=== PATIENT | female | born 1950 | race Caucasian/White ===

== ENCOUNTER → 2023-11-18 06:34 | Outpatient (REF) | payer MEDICARE, OTHER, SELFPAY | LOC: MRI 06:34 | PROVIDERS: ATTENDING PHYSICIAN Family Medicine | DX: R29.898 Other symptoms and signs involving the musculoskeletal system (principal) | CPT/HCPCS: 72141 ==

== ENCOUNTER 2023-11-23 08:30 | Inpatient (IN) | payer MEDICARE, OTHER, SELFPAY ==
[2023-11-23] VITALS (8 sets, daily range): BP systolic 134–153; BP diastolic 74–86; BMI 22.6
[2023-11-23 01:38] LABS: % Basophils 0.6 % (0-2); % Eosinophils 0.8 % (0-6); % Immature Granulocytes 0.3 % (0-0.5); % Monocytes 4.7 % (1.7-9.3); % Neutrophils 69.6 % (42.2-75.2); Absolute Basophils 0.1 10^3/uL (0-0.2); Absolute Eosinophils 0.1 10^3/uL (0-0.7); Absolute Lymphocytes 2.8 10^3/uL (1.2-3.4); Absolute Monocytes 0.6 10^3/uL (0.1-0.6); Absolute Neutrophils 8.1 10^3/uL (1.4-6.5); Hematocrit 39.1 % (37.0-47.0); Hemoglobin 14.5 g/dL (12.0-16.0); Mean Corp Hgb Conc. 37.1 g/dL (33.0-37.0); Mean Corpuscular Volume 89.1 fL (81.0-99.0); Mean Platelet Volume 10.8 fL (7.4-10.4); Nucleated Red Blood Cells % 0 %; Platelet Count 357 10^3/uL (130-400); Red Blood Cell Count 4.39 10^6/uL (4.20-5.40); Red Cell Dist. Width 13.2 % (11.5-14.5); White Blood Cell Count 11.7 10^3/uL (4.8-10.8)
[2023-11-23 01:50] LABS: ALT (SGPT) 31 U/L (0-35); AST (SGOT) 28 U/L (14-36); Albumin 4.8 g/dl (3.5-5.0); Alkaline Phosphatase 81 U/L (38-126); Blood Urea Nitrogen 16 mg/dl (7-17); Calcium 10.5 mg/dl (8.4-10.2); Carbon Dioxide 23 mmol/L (22-30); Chloride 106 mmol/L (98-107); Glucose 171 mg/dl (70-99); Lipase 110 U/L (23-300); Potassium 4.1 mmol/L (3.5-5.1); Sodium 138 mmol/L (135-145); Total Bilirubin 0.9 mg/dl (0.2-1.3); Total Protein 7.5 g/dl (6.3-8.2); eGFR > 60.00
--- NOTE | 2023-11-23 03:06 | ED.GENMED ---
History of Present Illness
General
Chief Complaint: Abdominal Pain
Source: patient
Time Seen by Provider: 11/23/23 01:37
Travel History
Have you had any contact with someone who has COVID-19?: No
Do you have any symptoms of coronavirus? Fever > 100 degrees, chills, cough, shortness of breath, sore throat, loss of taste or smell, muscle aches, or headache?: No
History of Present Illness
History of Present Illness:
This patient is a 73-year-old female who says she was feeling her usual self until last evening after she ate dinner, but says that the pain gradually just went away and she felt fine. She felt well throughout the day today, but then at around 6 PM
shortly after having dinner she developed diffuse abdominal discomfort associated with chills, tremors, nausea, and repeated episodes of vomiting of 'mucus'. She denies hematemesis or coffee-ground emesis. Upon arrival here she had multiple
'semiformed' brown bowel movements without black stool or blood. She is urinating as usual. She denies fever but does note chills. She denies chest pain, dyspnea, headache, neck pain. Patient notes that her daughter and granddaughter were ill
with similar symptoms last week. She has a history of bowel obstructions in the past but states that exactly feel like that.
Past History
Past History
ED Past Medical History: Cancer (Appendiceal with pseudomyxoma peritonei), Hypercholesterolemia, Valvular disease (MVP) and Other (Trigeminal neuralgia, B12 deficiency, diverticulitis, small bowel obstruction)
ED Past Surgical History: Appendectomy, Bowel resection, Cholecystectomy, Gynecological (Hysterectomy) and Other
Social History
Tobacco: Non-smoker
Alcohol: None
Drug: None
Personal:
Living: with family
Employment: Retired
Family History
Family History: Other (Grandparent with coronary disease, sister with coronary disease)
Phy Exam
Physical Exam
Physical Exam:
GENERAL: Alert , in no apparent distress
EYE: pupils equal and reactive
NECK: Supple, no significant adenopathy.
ENT: o/p clr, mmm.
CARDIAC: Regular rate and rhythm .
LUNGS: Clear breath sounds bilaterally, no acute respiratory distress, no wheezes/rales/rhonchi
ABDOMEN: Soft, diffuse nonspecific mild tenderness, no r/g, no cvat, slightly hyperactive bowel sounds
NEUROLOGICAL: Alert and oriented, no focal neuro deficits
SKIN: Warm and dry, skin intact.
MUSCULOSKELETAL: No edema, well perfused.
PSYCH: Normal and appropriate interaction.
Course
Orders/Labs/Results
Orders:
Orders
11/23/23 01:15
IV Insert/Care/Rem.- Treatment PRN
11/23/23 01:20
Complete Blood Count/With Diff Urgent
Comprehensive Metabolic Panel Urgent
Lipase Urgent
11/23/23 01:40
COVID-19 Antigen Urgent
Source: Nasal Swab
Influenza A+B Rapid Molecular Urgent
NATALIE Source: Nasal Swab
Specimen Description:
11/23/23 03:04
0.9% Sodium Chloride 1000 ml [Nss] 1,000 ml IV BOLUS
Iohexol [Omnipaque] See Protocol PO NOW STA
Ondansetron Injectable [Zofran] 4 mg IV NOW STA
11/23/23 03:05
CT Abd/pel W Iv And Oral Contr Urgent
Comment:
Reason For Exam: abd pain,n,v
11/23/23 03:12
Add On- LAB Urgent
Tests Added?: lipase
11/23/23 03:38
Complete Blood Count/No Diff Urgent
Glycohemoglobin (HgbA1c) Urgent
11/23/23 04:29
Ondansetron Injectable [Zofran] 4 mg .ROUTE .STK-MED ONE
11/23/23 04:36
Ondansetron Injectable [Zofran] 4 mg IV NOW STA
11/23/23 05:07
Ondansetron Injectable [Zofran] 4 mg IV NOW STA
11/23/23 07:25
0.9% Sodium Chloride 250 ml [Nss] 250 ml IV BOLUS
Prochlorperazine [Compazine] 10 mg IV NOW STA
11/23/23 08:11
HYDROmorphone [Dilaudid] 0.5 mg IV Q3HPRN PRN
11/23/23 08:14
Admit/Transfer Patient As Directed
Co-Sign Provider:
Level of Care: Inpatient admission
Assign to:: Medical/Surgical
Physician / Group: Ivy
Diagnosis: Small bowel obstruction
Reason for Hospitalization: N.p.o., IV fluids, analgesics, surgery consult
Expected length of stay greater than two midnights?: Yes
ELOS- Estimated Length of Stay in days: 3
I certify the patient meets the requirements for IP care: Yes
11/23/23 08:15
Code Status As Directed
Resuscitation Status: Full Code
11/23/23 08:27
Add On- LAB Routine
Tests Added?: HgbA1c
11/23/23 Lunch
NPO
Allow oral meds: No
Allow clear liquids: No
11/23/23 11:20
0.9% Sodium Chloride 1000 ml [Nss] 1,000 ml IV 100 mls/hr
Prochlorperazine [Compazine] 10 mg IV Q6HPRN PRN
11/23/23 11:20
SURGICAL CONSULT Routine
Consulting Provider: David Jimenes
Was physician already notified: Yes
Activity As Directed
Activity Level: Ambulate
I&O [Intake/ Output] As Directed
Frequency: q12h
DX Deep Vein Thrombosis Video Routine
11/23/23 18:00
Enoxaparin Sodium [Lovenox] 40 mg SC QPM
11/24/23 06:29
Complete Blood Count/With Diff IN AM
Comprehensive Metabolic Panel IN AM
Abnormal Lab Results
11/23/23 11/23/23
01:20 03:38
WBC 11.7 H 10^3/uL
(4.8-10.8)
MCH 33.0 H pg 32.0 H pg
(27.0-31.0) (27.0-31.0)
MCHC 37.1 H g/dL
(33.0-37.0)
MPV 10.8 H fL 10.9 H fL
(7.4-10.4) (7.4-10.4)
Absolute Neuts (auto) 8.1 H 10^3/uL
(1.4-6.5)
Glucose 171 H mg/dl
(70-99)
Hemoglobin A1c 5.8 H %
(4.0-5.6)
Calcium 10.5 H mg/dl
(8.4-10.2)
11/23/23 03:38
11/23/23 01:20
Vital Signs
Initial and Last Documented VS:
Initial Vital Signs
Temp Pulse Resp BP Pulse Ox
97.9 F 93 16 139/79 100
11/23/23 01:03 11/23/23 01:03 11/23/23 01:03 11/23/23 01:03 11/23/23 01:03
Last Documented Vital Signs
Temp Pulse Resp BP Pulse Ox
97.6 F 71 20 130/82 99
11/26/23 07:30 11/26/23 07:30 11/26/23 07:30 11/26/23 07:30 11/26/23 09:10
*Critical Care Note
Total Time (30-74mins, 75-104mins- exclusive of procedures): Not Applicable
Update Note
Update Note:
Patient presents to the Emergency Department with abdominal pain, nausea, vomiting
Number and Complexity of Problems Addressed at the Encounter
� Chronic conditions affecting care:
� Acute Exacerbation and/or Progression of Chronic Illness:
� Differential Diagnosis includes: But not limited to viral illness such as norovirus, bowel obstruction, diverticulitis, etc.
Amount and/or Complexity of Data to be Reviewed and Analyzed
� I performed an independent evaluation of and my interpretation is:
EKG:
CT: sbo
Xrays:
Laboratory Studies:no wbc elevation, mild hypoK
Other:
� Review of other/old records reveals: Patient admitted August 2018 for TIA. Extensive surgical history noted in other records
� Clinical information was obtained by an independent historian:
� Prescriptions/Medications Considered but not given:
� Further testing considered but not performed:
Risk of Complications and/or Morbidity or Mortality of Patient Management
� Social determinants of health affecting care:
� Discussion with other providers (PCP, Hospitalists, Consultants, etc):
� Escalation of care including admission/observation vs risk of discharge considered:
ED Attending Note
-
Portions of this chart may have been created with voice recognition software.� Occasional wrong word or��sound alike� substitutions may have occurred due to the inherent limitations of voice recognition software.
Discharge Plan
Departure
Patient Disposition: Admit
Date of Disposition: 11/23/23
Time of Disposition: 07:25
Admit to doctor: gary
Presentation/result/management discussed w/ accepting MD/DO: Hospitalist
Condition: Good
Discharge Problem:
SBO (small bowel obstruction)
Interventions
Interventions:
*General Assessment Last Done: 11/23/23 01:03
*Neglect/Abuse Screening Last Done: 11/23/23 01:03
ED- Fall Risk Assessment Last Done: 11/23/23 03:53
*Nursing Disposition Last Done: 11/23/23 19:16
NP-Ihzylj-Ohgfvswinr Assessment Last Done: 11/23/23 01:47
Discharge Date and Time
Discharge Date/Time: 11/23/23 19:17
[2023-11-23 03:11] LABS: COVID-19 Antigen Negative (Negative)
[2023-11-23] MEDS: ZOFRAN 4 MG IV ×3 (03:30→05:08)
[2023-11-23] MEDS: NSS 1000 IV ×2 (03:45→12:38)
[2023-11-23] MEDS: OMNIPAQUE 50 ML PO (03:45)
[2023-11-23 04:06] LABS: Hematocrit 38.8 % (37.0-47.0); Hemoglobin 13.8 g/dL (12.0-16.0); Mean Corp Hgb Conc. 35.6 g/dL (33.0-37.0); Mean Platelet Volume 10.9 fL (7.4-10.4); Platelet Count 336 10^3/uL (130-400); Red Blood Cell Count 4.31 10^6/uL (4.20-5.40); Red Cell Dist. Width 13.1 % (11.5-14.5); White Blood Cell Count 9.8 10^3/uL (4.8-10.8)
[2023-11-23] MEDS: COMPAZINE 10 MG IV ×2 (07:44→12:40)
[2023-11-23] MEDS: NSS 250 IV (07:45)
--- NOTE | 2023-11-23 08:17 | HPS.HSE ---
Family Physician
-
Family Physician: Cesar De Luna
Chief Complaint
-
Abdominal pain, vomiting
History of Present Illness
73-year-old female with numerous bowel obstructions in the past now presenting with recurrence of vomiting and abdominal pain. Had some abdominal pain Friday night that self resolved. Apparently felt well during the day yesterday but had
recurrence of severe abdominal pain Friday evening after dinner. Associated multiple bouts of vomiting but also had multiple bowel movements. Has had soft and loose stools chronically for some time, using daily Imodium for the past week. Has
had multiple bowel resections due to bowel obstruction and prior intestinal malignancy.
Medical History
Past Medical History
Past Medical History: Reports Other
Additional Past Medical History:
Appendiceal pseudomyxoma peritonei -initially diagnosed 1991. Multiple abdominal surgeries.
Hyperlipidemia
Mitral valve prolapse
Trigeminal neuralgia
B12 deficiency
Multiple small bowel obstructions
Diverticulosis
Past Surgical History: Reports Appendectomy, Cholecystectomy and Gynocological
Additional Past Surgical History:
Bowel resections
Social History
Tobacco: Non-smoker
Alcohol: None
Drug: None
Personal:
Living: With Family
Family History
Family History: Not pertinent
Allergies / Home Medications
Allergies reflects when Allergies were last updated in [employer].
Home Medications with original date entered in [employer]
Allergy/Medication List:
Allergies
Allergy/AdvReac Type Severity Reaction Status Date / Time
azithromycin [From Zithromax] Allergy Unknown Verified 05/29/22 16:38
cefuroxime axetil Allergy Nausea Verified 05/29/22 16:38
[From Ceftin]
cephalexin monohydrate Allergy Swelling Verified 05/29/22 16:38
[From Keflex]
ciprofloxacin [From Cipro] Allergy Swelling Verified 05/29/22 16:38
ciprofloxacin HCl Allergy Swelling Verified 05/29/22 16:38
[From Cipro]
duloxetine [From Cymbalta] Allergy Unknown Verified 05/29/22 16:38
gabapentin Allergy Rash Verified 05/29/22 16:38
nitrofurantoin Allergy Rash Verified 05/29/22 16:38
[From Macrobid]
sulfamethoxazole Allergy Nausea Verified 05/29/22 16:38
[From Bactrim]
trimethoprim [From Bactrim] Allergy Nausea Verified 05/29/22 16:38
fluorquinolones Allergy > 2 months Uncoded 02/02/22 13:16
of tooth
pain
Home Medications
cholecalciferol (vitamin D3) 25 mcg (1,000 unit) tablet 1,000 units PO DAILY 08/27/18
cyanocobalamin (vitamin B-12) 1,000 mcg tablet 1,000 mcg PO DAILY 08/27/18
guar gum 1 pkt PO DAILY 08/27/18
magnesium 200 mg tablet (magnesium gluconate) 200 mg PO DAILY 08/27/18
polyethylene glycol 3350 17 gram oral powder packet 17 grams PO DAILYPRN PRN constipation 08/27/18
aspirin 81 mg tablet,delayed release 81 mg PO DAILY 08/28/18
atorvastatin 40 mg tablet 40 mg PO QPM ##60 08/28/18
Review of Systems
-
History Source: Patient
A 12 point ROS was completed and negative except as noted: Yes
Abdomen/GI: Reports Abdominal Pain, Vomiting and Diarrhea
Physical Exam
Vital Signs
Vital Signs
Temp Pulse Resp BP Pulse Ox
97.9 F 85 16 153/86 98
11/23/23 01:03 11/23/23 05:35 11/23/23 05:35 11/23/23 06:00 11/23/23 05:35
Physical Exam
General: Well Developed, Well Nourished, Appears in Distress and Pain
HEENT: NormoCephalic, Anicteric and Moist mucous membranes
Respiratory: Clear
Cardiac: S1/S2 and Regular Rhythm
Breast: Deferred by me
GI: Soft, Non Distended and Tender (Mild tenderness without guarding)
Genito-urinary: Deferred by me
Musculoskeletal: No Clubbing, No Cyanosis and No Edema
Skin: Warm and Dry
Neuro: AO x 3
Hematologic/Lymphatic: No Lymphadenopathy
Psych: Calm
Laboratory Results
-
11/23/23 03:38
11/23/23 01:20
Laboratory Results
Total Bilirubin 0.9 mg/dl (0.2-1.3) 11/23/23 01:20
AST 28 U/L (14-36) 11/23/23 01:20
ALT 31 U/L (0-35) 11/23/23 01:20
Alkaline Phosphatase 81 U/L (38-126) 11/23/23 01:20
Lipase Cancelled 11/23/23 03:04
Impression/Plan
-
Abdominal pain/intractable vomiting -differential diagnosis includes acute gastroenteritis versus partial small bowel obstruction versus ileus. [facility] general surgery, n.p.o., IV fluids, antiemetics, analgesics. Await CT abdomen
pelvis reading by radiologist. Clinically not examining with bowel obstruction as she is not distended.
Check stool studies.
Hyperglycemia -rule out DM2. Check hemoglobin A1c.
Hypercalcemia -suspect due to volume depletion. Repeat labs after hydration.
Hyperlipidemia
Full code
[2023-11-23 09:51] LABS: Glycohemoglobin (HgbA1c) 5.8 % (4.0-5.6)
--- NOTE | 2023-11-23 11:43 | CON.GS ---
Addendum entered and electronically signed by David Jimenes MD 11/23/23 12:19:
Patient seen and examined. Agree with assessment and plan as documented below.
Patient is a 73 yo F with a PMH of spinal stenosis and appendiceal ca c/b pseudomyxoma peritonei s/p exploratory laparotomy, partial colectomy, cholecystectomy, total hysterectomy, splenectomy, omentectomy, and HIPEC [place] [address] Butt. She
states that she has not had a SBO since 2007. Over the last several months she has had issues with diarrhea and has been undergoing workup by her PCP. She does not follow with a GI or Oncologist. She presents with an acute worsening of symptoms
over the past 24-48 hours. Symptoms became acutely worse after eating a large volume of 'cauliflower steaks', as well as taking Imodium. Most recent bowel movement and flatus was yesterday. No fevers. Associated nausea and vomiting. Reports
current nausea, but no vomiting.
Gen: NAD
Abd: soft, NT/ND, no tympany, non-peritoneal
Labs and imaging were reviewed.
Patient is a 73 yo F p/w SBO likely secondary to adhesions, dietary indiscretion, and medication induced.
Clinically stable with a benign abdomen. No radiographic signs concerning for bowel ischemia or perforation. Appears to have equalization with a large food bolus within the jejunum resulting in dilation of the more proximal jejunum, duodenum, and
stomach. Given her symptomatic nature and proximal location of pathology, recommended NGT decompression. Patient refuses, risks discussed. Increased risk for operative complications given her prior surgical history (patient was told to let any
future surgeons know that there is extensive scarring). Recommend trial of medical management. All questions answered.
-- NPO, IVF, patient refuses NGT
-- Minimize narcotics, correct lytes
-- OOB/ambulate
-- Dietary education provided
Original Note:
Medical History
-
Chief Complaint: nausea
History of Present Illness:
This is a 73 yo female with a h/o spinal stenosis, appendiceal pseudomyxoma peritonei s/p resection in the 1991 with recurrent SBOs and recurrence requiring surgery in 2008 in [facility] with a 17 hour procedure that included
cholecystectomy,splenectomy and hysterectomy with subsequent medical treatment. She has noted no sbo's requiring hospitalization since procedure in 2008 but has been following with GI for recurrent diarrhea over the past few months with work up thus
far negative. She reports a normal colonoscopy one month ago. She was instructed to take Imodium as needed which she did about 48 hours ago. Over the past few days to weeks, she has had some general abdominal symptoms which have resolved relatively
quickly but notes that yesterday evening after dinner of cauliflower steak she noted pain increasing to her abdomen with development of nausea and vomiting. She is currently still nauseated but abdominal pain is mostly resolved. She is passing
flatus but has not passed a stool since yesterday.
Past Medical History
Past Medical History: Cancer (appendiceal pseudomyxoma peritonei), Diverticulitis, Hypercholesterolemia, Valvular Disease (MV prolapse) and Other (b12 deficiency, trigeminal neuralgia)
Past Surgical History: Bowel Resection (surgery in 1991 and 2007 including sbr,partial colectomy, splenectomy), Cholecystectomy and Gynecological (total hysterectomy)
Social History
Tobacco: Non-Smoker
Alcohol: None
Family History
Family History: Reviewed & Not Pertinent
Allergies / Home Medications
Allergy/AdvReac Type Severity Reaction Status Date / Time
azithromycin [From Zithromax] Allergy Unknown Verified 05/29/22 16:38
cefuroxime axetil Allergy Nausea Verified 05/29/22 16:38
[From Ceftin]
cephalexin monohydrate Allergy Swelling Verified 05/29/22 16:38
[From Keflex]
ciprofloxacin [From Cipro] Allergy Swelling Verified 05/29/22 16:38
ciprofloxacin HCl Allergy Swelling Verified 05/29/22 16:38
[From Cipro]
duloxetine [From Cymbalta] Allergy Unknown Verified 05/29/22 16:38
gabapentin Allergy Rash Verified 05/29/22 16:38
nitrofurantoin Allergy Rash Verified 05/29/22 16:38
[From Macrobid]
sulfamethoxazole Allergy Nausea Verified 05/29/22 16:38
[From Bactrim]
trimethoprim [From Bactrim] Allergy Nausea Verified 05/29/22 16:38
fluorquinolones Allergy > 2 months Uncoded 02/02/22 13:16
of tooth
pain
Medication Instructions Recorded Confirmed Type
cholecalciferol (vitamin D3) 25 1,000 units PO DAILY 08/27/18 08/27/18 History
mcg (1,000 unit) tablet
cyanocobalamin (vitamin B-12) 1,000 mcg PO DAILY 08/27/18 08/27/18 History
1,000 mcg tablet
guar gum 1 pkt PO DAILY 08/27/18 08/27/18 History
magnesium 200 mg tablet (magnesium 200 mg PO DAILY 08/27/18 08/27/18 History
gluconate)
polyethylene glycol 3350 17 gram 17 grams PO DAILYPRN PRN 08/27/18 08/27/18 History
oral powder packet constipation
aspirin 81 mg tablet,delayed 81 mg PO DAILY 08/28/18 Rx
release
atorvastatin 40 mg tablet 40 mg PO QPM ##60 08/28/18 Rx
clindamycin HCl 150 mg capsule 450 mg PO Q8H 10 days 02/02/22 Rx
Review of Systems
-
History Source: Patient
All other systems: Negative unless noted
A 10 point review of systems was completed, and was negative except as per HPI.
Physical Exam
Vital Signs
Temp Pulse Resp BP Pulse Ox
97.9 F 85 16 153/86 98
11/23/23 01:03 11/23/23 05:35 11/23/23 05:35 11/23/23 06:00 11/23/23 05:35
11/22/23 11/23/23 11/24/23
05:59 06:59 06:59
Actual Weight
Lab Results
11/23/23 03:38
11/23/23 01:20
WBC 9.8 10^3/uL (4.8-10.8) 11/23/23 03:38
Hgb 13.8 g/dL (12.0-16.0) 11/23/23 03:38
Hct 38.8 % (37.0-47.0) 11/23/23 03:38
Plt Count 336 10^3/uL (130-400) 11/23/23 03:38
Abs Immat Gran (auto) 0.0 10^3/uL (0-0.05) 11/23/23 01:20
Neutrophils % 69.6 % (42.2-75.2) 11/23/23 01:20
Physical Exam
General: Well Developed
HEENT: Moist Mucous Membranes
Respiratory: Non Labored Respirations
GI: Soft, Non Tender and Distended (mild)
Skin: Warm and Dry
Neuro: Awake, Alert and AO x 3
Psych: Calm
Data Reviewed
-
CT Scan: Image Personally Visualized and interpreted, Report Reviewed by me, Discussed with Physician and Discussed with Patient
Labs: Labs Reviewed by me, Discussed with Physician and Discussed with Patient
Old Records: Reviewed
Assessment / Plan
-
73 yo female with a h/o spinal stenosis, appendiceal pseudomyxoma peritonei s/p resection in the 1991 with recurrent SBOs and ca recurrence requiring surgery in 2007 in [facility] with a 17 hour procedure that included cholecystectomy,
splenectomy and hysterectomy with subsequent medical treatment. She has been taking Imodium intermittently over the past few months for chronic diarrhea as directed by her GI, with last dose on Friday. Last BM was Friday. She developed increasing
abdominal discomfort with nausea and vomiting yesterday evening after eating a larger amount of cauliflower. CT imaging consistent with at least a partial SBO although limited d/t lack of oral contrast. No pneumoperitoneum or evidence of bowel
compromise noted. Pain improving. Passing flatus. Nausea still present. AFVSS. No leukocytosis.
Discussed NGT placement with patient given active nausea, she is declining this at this time
NPO/IVF
Will follow nonoperatively for improvement at this time with bowel rest and supportive measures
[2023-11-23] MEDS: DILAUDID 0.5 MG IV (12:37)
[2023-11-23] MEDS: LOVENOX 40 MG SC (20:08)
--- NOTE | 2023-11-23 20:15 | PTCARENOTE ---
Pt arrived to room 434-01. Pt ambulated from stretcher to bed. Pt AAOx3, VSS. Pt c/o 2/10 abdominal pain, reports no other pain. Pt in no signs of acute distress, respirations regular. Pt oriented to room, call herman placed within reach.
[2023-11-24] MEDS: NSS 1000 IV ×3 (00:44→21:44)
[2023-11-24 08:10] LABS: % Basophils 0.3 % (0-2); % Eosinophils 0.1 % (0-6); % Immature Granulocytes 0.3 % (0-0.5); % Lymphocytes 35.5 % (20.5-51.1); % Monocytes 8.4 % (1.7-9.3); % Neutrophils 55.4 % (42.2-75.2); Absolute Lymphocytes 3.5 10^3/uL (1.2-3.4); Absolute Monocytes 0.8 10^3/uL (0.1-0.6); Absolute Neutrophils 5.5 10^3/uL (1.4-6.5); Hematocrit 33.6 % (37.0-47.0); Hemoglobin 12.1 g/dL (12.0-16.0); Mean Corpuscular Hgb 32.7 pg (27.0-31.0); Mean Corpuscular Volume 90.8 fL (81.0-99.0); Mean Platelet Volume 11.7 fL (7.4-10.4); Nucleated Red Blood Cells % 0 %; Platelet Count 267 10^3/uL (130-400); Red Cell Dist. Width 13.4 % (11.5-14.5); White Blood Cell Count 9.9 10^3/uL (4.8-10.8)
[2023-11-24 08:11] VITALS: BP 129/77
[2023-11-24 09:00] LABS: ALT (SGPT) 24 U/L (0-35); AST (SGOT) 23 U/L (14-36); Albumin 3.4 g/dl (3.5-5.0); Alkaline Phosphatase 57 U/L (38-126); Blood Urea Nitrogen 16 mg/dl (7-17); Calcium 8.7 mg/dl (8.4-10.2); Carbon Dioxide 22 mmol/L (22-30); Chloride 106 mmol/L (98-107); Estimated Creatinine Clearance 62 ml/min; Glucose 93 mg/dl (70-99); Potassium 3.6 mmol/L (3.5-5.1); Sodium 136 mmol/L (135-145); Total Bilirubin 1.2 mg/dl (0.2-1.3); Total Protein 5.6 g/dl (6.3-8.2); eGFR > 60.00
--- NOTE | 2023-11-24 10:25 | W.PN.GS2 ---
Today's Communication / Plan
-
NPO/IVF
Assessment / Plan
-
Patient is a 73 yo F with h/o appendiceal ca with initial surgery in 1991, c/b pseudomyxoma peritonei s/p exploratory laparotomy, partial colectomy, cholecystectomy, total hysterectomy, splenectomy, omentectomy, and HIPEC [place] [address] Butt
who p/w SBO likely secondary to adhesions, dietary indiscretion, and medication induced.
Clinically stable with a benign abdomen.� Symptoms improving overall. Still w/o flatus/stool passage
AFVSS
Labs stable without leukocytosis
-- NPO, IVF
-- Minimize narcotics, correct lytes
-- OOB/ambulate
-- Dietary education provided
Subjective Data
-
Date of Service: November 24, 2023
Patient seen and examined at bedside with Dr. Maurice. Denies n/v. No passage of flatus overnight. Overall, pain much improved as is distention.
Objective Data
-
Intake and Output
11/23/23 11/24/23 11/25/23
06:59 06:59 06:59
Intake Total 1000 / 1000
Balance 1000 / 1000
Intake:
IV fluids (Total) 1000 / 1000
Other:
Number of approximated MODERATE 2
amounts of urine
Vital Signs
Temp Pulse Resp BP Pulse Ox
99.1 F 82 18 129/77 98
11/24/23 08:11 11/24/23 08:11 11/24/23 08:11 11/24/23 08:11 11/24/23 08:11
Lab Results
11/24/23 06:29
11/24/23 06:29
Calcium 8.7 mg/dl (8.4-10.2) D 11/24/23 06:29
Total Bilirubin 1.2 mg/dl (0.2-1.3) 11/24/23 06:29
AST 23 U/L (14-36) 11/24/23 06:29
ALT 24 U/L (0-35) 11/24/23 06:29
Alkaline Phosphatase 57 U/L (38-126) 11/24/23 06:29
Total Protein 5.6 g/dl (6.3-8.2) L D 11/24/23 06:29
Albumin 3.4 g/dl (3.5-5.0) L 11/24/23 06:29
Physical Exam
-
NAD, Ox3
ABD soft, mild distention, NT
--- NOTE | 2023-11-24 13:30 | W.PN.HOSP.TC ---
Today's Communication/Plan
-
Monitor vital signs
see plan
N.p.o., fluids
Surgery following
Assessment / Plan
Assessment / Plan
General: Well Developed, Well Nourished, Appears in Distress and Pain
HEENT: NormoCephalic, Anicteric and Moist mucous membranes
Respiratory: Clear
Cardiac: S1/S2 and Regular Rhythm
Breast: Deferred by me
GI: Soft, Non Distended and non tender
Genito-urinary: Deferred by me
Neuro: AO x 3
Psych: Calm
Abdominal pain/intractable vomiting Secondary to small bowel obstruction
History of obstruction in the past
Surgery following
Patient refused NG tube
Fluids
N.p.o.
hx of pseudomyxoma peritonei s/p exploratory laparotomy, partial colectomy, cholecystectomy, total hysterectomy, splenectomy, omentectomy
Hyperglycemia - Check hemoglobin A1c 5.8; consistent with prediabetes
Hypercalcemia -resolved
Hyperlipidemia
Full code
Anticipated Discharge: 24 - 48 hours
Subjective/Interval History
-
Date of Service: November 24, 2023
denies pain
Objective Data
-
Labs:
Laboratory Results
11/24/23
06:29
WBC 9.9
Hgb 12.1
Hct 33.6 L
Plt Count 267 D
Sodium 136
Potassium 3.6
Chloride 106
Carbon Dioxide 22
BUN 16
Creatinine 0.7
Glucose 93
Calcium 8.7 D
Total Bilirubin 1.2
AST 23
ALT 24
Alkaline Phosphatase 57
Vital Signs:
Vital Signs
Temp Pulse Resp BP Pulse Ox
99.1 F 82 18 129/77 98
11/24/23 08:11 11/24/23 08:11 11/24/23 08:11 11/24/23 08:11 11/24/23 08:11
I&O
11/23/23 11/24/23 11/25/23
06:59 06:59 06:59
Intake Total 1000 / 1000
Balance 1000 / 1000
[2023-11-24 14:19] VITALS: BMI 22.6
[2023-11-24 16:00] VITALS: BP 130/84
--- NOTE | 2023-11-24 16:35 | CM ---
camp manager reviewed patient's chart and met with patient and patient lives alone in a 2 story home, patient is independent with adl's and ambulation, no dme, patient drives. patient has a prescription plan and uses [facility].
PCP: Dr. De Luna
Plan; Home no needs when stable.
[2023-11-24] MEDS: LOVENOX SC (17:19)
[2023-11-24] MEDS: MORPHINE SULFATE 1 MG IV (18:21)
[2023-11-24] MEDS: DILAUDID 0.5 MG IV (21:49)
[2023-11-24 23:10] VITALS: BP 113/69
[2023-11-25] MEDS: DILAUDID 0.5 MG IV ×2 (02:00→09:59)
[2023-11-25] MEDS: NSS 1000 IV ×3 (07:21→21:42)
[2023-11-25 07:52] VITALS: BP 135/75
[2023-11-25 08:26] LABS: % Basophils 1.2 % (0-2); % Immature Granulocytes 0.2 % (0-0.5); % Lymphocytes 44.9 % (20.5-51.1); % Monocytes 9.6 % (1.7-9.3); % Neutrophils 43.1 % (42.2-75.2); Absolute Basophils 0.1 10^3/uL (0-0.2); Absolute Eosinophils 0.1 10^3/uL (0-0.7); Absolute Lymphocytes 3.6 10^3/uL (1.2-3.4); Absolute Monocytes 0.8 10^3/uL (0.1-0.6); Absolute Neutrophils 3.5 10^3/uL (1.4-6.5); Hematocrit 34.4 % (37.0-47.0); Hemoglobin 12.1 g/dL (12.0-16.0); Mean Corp Hgb Conc. 35.2 g/dL (33.0-37.0); Mean Corpuscular Hgb 32.5 pg (27.0-31.0); Mean Corpuscular Volume 92.5 fL (81.0-99.0); Mean Platelet Volume 11.9 fL (7.4-10.4); Nucleated Red Blood Cells % 0 %; Platelet Count 281 10^3/uL (130-400); Red Blood Cell Count 3.72 10^6/uL (4.20-5.40); Red Cell Dist. Width 13.6 % (11.5-14.5); White Blood Cell Count 8.1 10^3/uL (4.8-10.8)
[2023-11-25 09:05] LABS: ALT (SGPT) 27 U/L (0-35); AST (SGOT) 24 U/L (14-36); Albumin 3.4 g/dl (3.5-5.0); Alkaline Phosphatase 62 U/L (38-126); Blood Urea Nitrogen 14 mg/dl (7-17); Calcium 8.8 mg/dl (8.4-10.2); Carbon Dioxide 25 mmol/L (22-30); Chloride 104 mmol/L (98-107); Estimated Creatinine Clearance 62 ml/min; Glucose 87 mg/dl (70-99); Potassium 3.4 mmol/L (3.5-5.1); Sodium 137 mmol/L (135-145); Total Protein 5.7 g/dl (6.3-8.2); eGFR > 60.00
--- NOTE | 2023-11-25 11:02 | W.PN.GS2 ---
Today's Communication / Plan
-
-- Clears
-- Abd X-ray to help gauge dietary advancement
-- Minimize narcotics (Tylenol and Toradol added)
Assessment / Plan
-
Patient is a 73 yo F with h/o appendiceal ca with initial surgery in 1991, c/b pseudomyxoma peritonei s/p exploratory laparotomy, partial colectomy, cholecystectomy, total hysterectomy, splenectomy, omentectomy, and HIPEC [place] [address] Butt
who p/w SBO likely secondary to adhesions, dietary indiscretion, and medication induced.
Clinically stable with a benign abdomen.� Symptoms improving overall. Passing flatus, no BM
AFVSS
Labs stable without leukocytosis
-- Clears
-- Abd X-ray to help gauge dietary advancement
-- Minimize narcotics (Tylenol and Toradol added), correct lytes
-- OOB/ambulate
-- Dietary education provided
Subjective Data
-
Date of Service: November 25, 2023
No complaints. Feels improved. No nausea or vomiting. No worsening abdominal distention or pain. Passing flatus, no BM.
Objective Data
-
Intake and Output
11/24/23 11/25/23 11/26/23
06:59 06:59 06:59
Intake Total 1000 / 1000
Balance 1000 / 1000
Intake:
IV fluids (Total) 1000 / 1000
Other:
Number of approximated SMALL 4
amounts of urine
Number of approximated MODERATE 2 1
amounts of urine
Vital Signs
Temp Pulse Resp BP Pulse Ox
98.2 F 67 16 135/75 96
11/25/23 07:52 11/25/23 07:52 11/25/23 07:52 11/25/23 07:52 11/25/23 07:52
Lab Results
11/25/23 07:10
03/12/24 07:10
Calcium 8.8 mg/dl (8.4-10.2) 11/25/23 07:10
Total Bilirubin 1.0 mg/dl (0.2-1.3) 11/25/23 07:10
AST 24 U/L (14-36) 11/25/23 07:10
ALT 27 U/L (0-35) 11/25/23 07:10
Alkaline Phosphatase 62 U/L (38-126) 11/25/23 07:10
Total Protein 5.7 g/dl (6.3-8.2) L 11/25/23 07:10
Albumin 3.4 g/dl (3.5-5.0) L 11/25/23 07:10
Physical Exam
-
Gen: NAD
Abd: soft, NT/ND, non-peritoneal, prior incisions well healed
--- NOTE | 2023-11-25 11:56 | W.PN.HOSP.TC ---
Today's Communication/Plan
-
Monitor vital signs see plan
Abdominal x-ray pending
Continue with clears
Repeat potassium
Assessment / Plan
Assessment / Plan
General: Well Developed, Well Nourished, Appears in Distress and Pain
HEENT: NormoCephalic, Anicteric and Moist mucous membranes
Respiratory: Clear
Cardiac: S1/S2 and Regular Rhythm
Breast: Deferred by me
GI: Soft, Non Distended and non tender
Genito-urinary: Deferred by me
Neuro: AO x 3
Psych: Calm
Abdominal pain/intractable vomiting Secondary to small bowel obstruction
History of obstruction in the past
Surgery following
Patient refused NG tube
Fluids
Now started on clears, abdominal x-ray pending
hx of pseudomyxoma peritonei s/p exploratory laparotomy, partial colectomy, cholecystectomy, total hysterectomy, splenectomy, omentectomy
Mild hypokalemia
Replete
Hyperglycemia - Check hemoglobin A1c 5.8; consistent with prediabetes
Hypercalcemia -resolved
Hyperlipidemia
Full code
Anticipated Discharge: Within 24 hours
Subjective/Interval History
-
Date of Service: November 25, 2023
denies abdominal pain
Objective Data
-
Labs:
Laboratory Results
11/25/23
07:10
WBC 8.1
Hgb 12.1
Hct 34.4 L
Plt Count 281
Sodium 137
Potassium 3.4 L
Chloride 104
Carbon Dioxide 25
BUN 14
Creatinine 0.7
Glucose 87
Calcium 8.8
Total Bilirubin 1.0
AST 24
ALT 27
Alkaline Phosphatase 62
Vital Signs:
Vital Signs
Temp Pulse Resp BP Pulse Ox
98.2 F 67 16 135/75 96
11/25/23 07:52 11/25/23 07:52 11/25/23 07:52 11/25/23 07:52 11/25/23 07:52
I&O
11/24/23 11/25/23 11/26/23
06:59 06:59 06:59
Intake Total 1000 / 1000
Balance 1000 / 1000
--- NOTE | 2023-11-25 12:05 | CM ---
Home when stable no needs.
Plan; Home no needs.
[2023-11-25] MEDS: KCL 260 MEQ IV (13:25)
--- NOTE | 2023-11-25 14:14 | PN.CDI ---
CDI
- -
CDI:
Physician Documentation Request
Admit Date: 11/23/23 08:30
Dear Doctor Diego,
Clinical Indicators:
Patient admitted with small bowel obstruction.
11/23 note/assessment: -'23lb 17% weight loss x past 4months.'
-Loss of fat over tricep & rib cage; Loss of muscle over buccal & clavicle noted.
-'Pt meets criteria for moderate protein calorie malnutrition of SEC with >7.5% wt
loss x 3months and mild loss of subcutaneous fat and muscle.'
Based on the information, which of the following most accurately represents the patient's nutritional status?
Moderate Protein Calorie Malnutrition
Mild Protein Calorie Malnutrition
Other (please specify)
[place] Criteria ([facility] Hospitalist 2017)
2 or more criteria must be present for either
non severe or severe malnutrition
Note that the criteria differs related to the
presence of an acute or chronic illness
Acute Illness Chronic Illness
Energy Intake Non Severe: <75% for >7 days Non Severe: <75% for >1 month
Severe: <50% for >5 days Severe: <75% for >1 month
Weight Loss Non Severe: 1-2% over 1 week Non Severe: 5% over 1 month
5% over 1 month 7.5% over 3 months
7.5% over 3 months 10% over 6 months
1 year N/A 20% over 1 year
Severe: >2% over 1 week Severe: >5% over 1 month
>5% over 1 month >7.5% over 3 months
>7.5% over 3 months >10% over 6 months
1 year N/A >20% over 1 year
Body Fat Non Severe: Mild Decrease Non Severe: Mild Loss
Severe: Moderate Decrease Severe: Severe Loss
Muscle Mass Non Severe: Mild Decrease Non Severe: Mild Loss
Severe: Moderate Decrease Severe: Severe Loss
Fluid Accumulation Non Severe: Mild Accumulation Non Severe: Mild Accumulation
Severe: Moderate to severe Severe: Moderate to severe
accumulation accumulation
Reduced Importer Exporter Strength Non Severe: N/A Non Severe: N/A
Severe: Measurably reduced Severe: Measurably reduced
Additional criteria that can be used to Determine if Mild or Moderate Malnutrition ([employer] Manual 2018)
Mild Moderate Severe
Albumin gm/dl <3.0 gm/dl <2.5 gm/dl <2.0 gm/dl
Pre Albumin mg/dl <15 gm/dl <10 mg/dl <5.0 mg/dl
BMI <18.5 <17 <16
Use of terms such as suspected, likely, concern for, or probable (associated with a specific diagnosis that is being evaluated, monitored, or treated as if it exists) are acceptable and can be coded in the inpatient setting, when documented at the
time of discharge.
Thank you,
NESTOR Cobos RN
CDI Specialist
available via tiger text
Please use your independent medical judgment in providing your response.
[2023-11-25 15:02] VITALS: BP 134/72
[2023-11-25] MEDS: LOVENOX SC (18:35)
[2023-11-25 23:27] VITALS: BP 116/64
[2023-11-26] MEDS: TYLENOL 650 MG PO (00:26)
[2023-11-26 07:30] VITALS: BP 130/82
[2023-11-26 08:23] LABS: % Eosinophils 2.7 % (0-6); % Immature Granulocytes 0.2 % (0-0.5); % Lymphocytes 45.9 % (20.5-51.1); % Monocytes 10.2 % (1.7-9.3); Absolute Basophils 0.1 10^3/uL (0-0.2); Absolute Eosinophils 0.2 10^3/uL (0-0.7); Absolute Lymphocytes 2.9 10^3/uL (1.2-3.4); Absolute Monocytes 0.6 10^3/uL (0.1-0.6); Absolute Neutrophils 2.5 10^3/uL (1.4-6.5); Hematocrit 35.4 % (37.0-47.0); Hemoglobin 12.4 g/dL (12.0-16.0); Mean Corpuscular Hgb 32.9 pg (27.0-31.0); Mean Corpuscular Volume 93.9 fL (81.0-99.0); Mean Platelet Volume 11.6 fL (7.4-10.4); Nucleated Red Blood Cells % 0 %; Platelet Count 286 10^3/uL (130-400); Red Blood Cell Count 3.77 10^6/uL (4.20-5.40); Red Cell Dist. Width 13.2 % (11.5-14.5); White Blood Cell Count 6.3 10^3/uL (4.8-10.8)
[2023-11-26 08:40] LABS: ALT (SGPT) 28 U/L (0-35); AST (SGOT) 25 U/L (14-36); Albumin 3.7 g/dl (3.5-5.0); Alkaline Phosphatase 61 U/L (38-126); Blood Urea Nitrogen 7 mg/dl (7-17); Carbon Dioxide 28 mmol/L (22-30); Chloride 106 mmol/L (98-107); Estimated Creatinine Clearance 62 ml/min; Glucose 99 mg/dl (70-99); Potassium 3.3 mmol/L (3.5-5.1); Sodium 138 mmol/L (135-145); Total Bilirubin 1.1 mg/dl (0.2-1.3); eGFR > 60.00
[2023-11-26] MEDS: KCL 260 MEQ IV (09:05)
[2023-11-26] MEDS: DILAUDID 0.5 MG IV (10:53)
[2023-11-26] MEDS: NSS IV (12:13)
--- NOTE | 2023-11-26 12:15 | W.PN.GS2 ---
Today's Communication / Plan
-
Adv to LRD
Assessment / Plan
-
Patient is a 73 yo F with h/o appendiceal ca with initial surgery in 1991, c/b pseudomyxoma peritonei s/p exploratory laparotomy, partial colectomy, cholecystectomy, total hysterectomy, splenectomy, omentectomy, and HIPEC [place] [address] Butt
who p/w SBO likely secondary to adhesions, dietary indiscretion, and medication induced.
Clinically stable with a benign abdomen.� Symptoms improving overall. Passing flatus, now with multiple BMs
AFVSS
Labs stable without leukocytosis
-- Adv to LRD
-- Minimize narcotics (Tylenol and Toradol added), correct lytes
-- OOB/ambulate
-- Dietary education provided
-- She has outpt defecography scheduled for tomorrow, ordered by [facility]. This will need to be deferred as it is an outpt study..
Subjective Data
-
Date of Service: November 26, 2023
AFVSS, multiple BMs and flatus, denies n/v, martha cld, ambulating
Objective Data
-
Intake and Output
11/25/23 11/26/23 11/27/23
06:59 06:59 06:59
Intake Total 1360 / 1360
Balance 1360 / 1360
Intake:
IV fluids (Total) 1100 / 1100
Blood products 260 / 260
Other:
Number of approximated SMALL 4 2
amounts of urine
Number of approximated MODERATE 1 3
amounts of urine
Vital Signs
Temp Pulse Resp BP Pulse Ox
97.6 F 71 20 130/82 99
11/26/23 07:30 11/26/23 07:30 11/26/23 07:30 11/26/23 07:30 11/26/23 09:10
Lab Results
11/26/23 07:39
11/26/23 07:39
Calcium 9.0 mg/dl (8.4-10.2) 11/26/23 07:39
Total Bilirubin 1.1 mg/dl (0.2-1.3) 11/26/23 07:39
AST 25 U/L (14-36) 11/26/23 07:39
ALT 28 U/L (0-35) 11/26/23 07:39
Alkaline Phosphatase 61 U/L (38-126) 11/26/23 07:39
Total Protein 6.0 g/dl (6.3-8.2) L 11/26/23 07:39
Albumin 3.7 g/dl (3.5-5.0) 11/26/23 07:39
Physical Exam
-
Gen: NAD
Abd: soft, nd, mild ttp to LLQ
--- NOTE | 2023-11-26 12:33 | W.PN.HOSP.TC ---
Addendum entered and electronically signed by Kyle Cortez MD 11/26/23 12:55:
Moderate protein calorie malnutrition
Original Note:
Today's Communication/Plan
-
Monitor vital signs
See plan
Advance to low res diet and monitor
Replete potassium
Assessment / Plan
Assessment / Plan
General: Well Developed, Well Nourished, Appears in Distress and Pain
HEENT: NormoCephalic, Anicteric and Moist mucous membranes
Respiratory: Clear
Cardiac: S1/S2 and Regular Rhythm
Breast: Deferred by me
GI: Soft, Non Distended and non tender
Genito-urinary: Deferred by me
Neuro: AO x 3
Psych: Calm
Abdominal pain/intractable vomiting Secondary to small bowel obstruction
History of obstruction in the past
Surgery following
Patient refused NG tube
now improving with multiple Bm's; started on LRD. will monitor
hx of pseudomyxoma peritonei s/p exploratory laparotomy, partial colectomy, cholecystectomy, total hysterectomy, splenectomy, omentectomy
Patient has outpatient defcography scheduled, defer to outpatient
Mild hypokalemia
Replete
Hyperglycemia - Check hemoglobin A1c 5.8; consistent with prediabetes
Hypercalcemia -resolved
Hyperlipidemia
Full code
Anticipated Discharge: Within 24 hours
Subjective/Interval History
-
Date of Service: November 26, 2023
denies pain
Objective Data
-
Labs:
Laboratory Results
11/26/23
07:39
WBC 6.3
Hgb 12.4
Hct 35.4 L
Plt Count 286
Sodium 138
Potassium 3.3 L
Chloride 106
Carbon Dioxide 28
BUN 7
Creatinine 0.7
Glucose 99
Calcium 9.0
Total Bilirubin 1.1
AST 25
ALT 28
Alkaline Phosphatase 61
Vital Signs:
Vital Signs
Temp Pulse Resp BP Pulse Ox
97.6 F 71 20 130/82 99
11/26/23 07:30 11/26/23 07:30 11/26/23 07:30 11/26/23 07:30 11/26/23 09:10
I&O
11/25/23 11/26/23 11/27/23
06:59 06:59 06:59
Intake Total 1360 / 1360
Balance 1360 / 1360
--- NOTE | 2023-11-26 12:47 | PTCARENOTE ---
Dr. Luz aware pt requested and needed Dilaudid 0.5mg IV for 9/10 abd pain. Pt's diet to be increased and monitor.
--- NOTE | 2023-11-26 13:32 | CM ---
Chart reviewed and nicki to return to home when stable.
Plan; Home when stable.
[2023-11-26 16:00] VITALS: BP 114/57
[2023-11-26] MEDS: LOVENOX SC (17:03)
[2023-11-26 23:03] VITALS: BP 111/53
[2023-11-27 07:30] VITALS: BP 127/63
[2023-11-27 08:44] LABS: % Eosinophils 5.6 % (0-6); % Immature Granulocytes 0.2 % (0-0.5); % Lymphocytes 50.7 % (20.5-51.1); % Monocytes 8.5 % (1.7-9.3); Absolute Basophils 0.1 10^3/uL (0-0.2); Absolute Eosinophils 0.4 10^3/uL (0-0.7); Absolute Lymphocytes 3.2 10^3/uL (1.2-3.4); Absolute Monocytes 0.5 10^3/uL (0.1-0.6); Absolute Neutrophils 2.1 10^3/uL (1.4-6.5); Hematocrit 35.8 % (37.0-47.0); Hemoglobin 12.6 g/dL (12.0-16.0); Mean Corp Hgb Conc. 35.2 g/dL (33.0-37.0); Mean Corpuscular Hgb 32.1 pg (27.0-31.0); Mean Corpuscular Volume 91.1 fL (81.0-99.0); Mean Platelet Volume 11.8 fL (7.4-10.4); Nucleated Red Blood Cells % 0 %; Platelet Count 302 10^3/uL (130-400); Red Blood Cell Count 3.93 10^6/uL (4.20-5.40); Red Cell Dist. Width 13.3 % (11.5-14.5); White Blood Cell Count 6.2 10^3/uL (4.8-10.8)
[2023-11-27 09:29] LABS: ALT (SGPT) 26 U/L (0-35); AST (SGOT) 22 U/L (14-36); Albumin 3.7 g/dl (3.5-5.0); Alkaline Phosphatase 60 U/L (38-126); Blood Urea Nitrogen 9 mg/dl (7-17); Carbon Dioxide 27 mmol/L (22-30); Chloride 106 mmol/L (98-107); Estimated Creatinine Clearance 62 ml/min; Glucose 89 mg/dl (70-99); Potassium 3.9 mmol/L (3.5-5.1); Sodium 137 mmol/L (135-145); Total Bilirubin 0.9 mg/dl (0.2-1.3); eGFR > 60.00
--- NOTE | 2023-11-27 12:27 | W.PN.HOSP.TC ---
Addendum entered and electronically signed by Kyle Cortez MD 11/27/23 13:39:
Time of discharge 36 minutes
Addendum entered and electronically signed by Kyle Cortez MD 11/27/23 12:31:
Moderate protein calorie malnutrition
Original Note:
Today's Communication/Plan
-
monitor vitals
see plan
dc today if ok with surgery
LRD
Assessment / Plan
Assessment / Plan
General: Well Developed, Well Nourished, Appears in Distress and Pain
HEENT: NormoCephalic, Anicteric and Moist mucous membranes
Respiratory: Clear
Cardiac: S1/S2 and Regular Rhythm
Breast: Deferred by me
GI: Soft, Non Distended and non tender
Genito-urinary: Deferred by me
Neuro: AO x 3
Psych: Calm
Abdominal pain/intractable vomiting Secondary to small bowel obstruction
History of obstruction in the past
Surgery following
Patient refused NG tube
now improving with multiple Bm's; started on LRD. tolerating. will monitor
hx of pseudomyxoma peritonei s/p exploratory laparotomy, partial colectomy, cholecystectomy, total hysterectomy, splenectomy, omentectomy
Patient has outpatient defcography scheduled, defer to outpatient
Mild hypokalemia
Replete
Hyperglycemia - Check hemoglobin A1c 5.8; consistent with prediabetes
Hypercalcemia -resolved
Hyperlipidemia
Full code
Anticipated Discharge: Today
Subjective/Interval History
-
Date of Service: November 27, 2023
denies pain
Objective Data
-
Labs:
Laboratory Results
11/27/23
07:49
WBC 6.2
Hgb 12.6
Hct 35.8 L
Plt Count 302
Sodium 137
Potassium 3.9
Chloride 106
Carbon Dioxide 27
BUN 9
Creatinine 0.7
Glucose 89
Calcium 9.0
Total Bilirubin 0.9
AST 22
ALT 26
Alkaline Phosphatase 60
Vital Signs:
Vital Signs
Temp Pulse Resp BP Pulse Ox
97.7 F 67 19 127/63 98
11/27/23 07:30 11/27/23 07:30 11/27/23 07:30 11/27/23 07:30 11/27/23 07:30
I&O
11/26/23 11/27/23 11/28/23
06:59 06:59 06:59
Intake Total 1360 / 1360 840 / 840
Balance 1360 / 1360 840 / 840
--- NOTE | 2023-11-27 13:35 | W.PN.GS2 ---
Today's Communication / Plan
-
`
Assessment / Plan
-
Patient is a 73 yo F with h/o appendiceal ca with initial surgery in 1991, c/b pseudomyxoma peritonei s/p exploratory laparotomy, partial colectomy, cholecystectomy, total hysterectomy, splenectomy, omentectomy, and HIPEC [place] [address] Butt
who p/w SBO likely secondary to adhesions, dietary indiscretion, and medication induced.
AFVSS
SBO resolving/resolved
-- d/c home
Subjective Data
-
Date of Service: November 27, 2023
pt seen and examined
feels better
martha low residue diet
+flatus/BM
Objective Data
-
Intake and Output
11/26/23 11/27/23 11/28/23
06:59 06:59 06:59
Intake Total 1360 / 1360 840 / 840
Balance 1360 / 1360 840 / 840
Intake:
Oral fluids 840 / 840
IV fluids (Total) 1100 / 1100
Blood products 260 / 260
Other:
Number of approximated SMALL 2
amounts of urine
Number of approximated MODERATE 3 2
amounts of urine
Vital Signs
Temp Pulse Resp BP Pulse Ox
97.7 F 67 19 127/63 98
11/27/23 07:30 11/27/23 07:30 11/27/23 07:30 11/27/23 07:30 11/27/23 07:30
Lab Results
11/27/23 07:49
11/27/23 07:49
Calcium 9.0 mg/dl (8.4-10.2) 11/27/23 07:49
Total Bilirubin 0.9 mg/dl (0.2-1.3) 11/27/23 07:49
AST 22 U/L (14-36) 11/27/23 07:49
ALT 26 U/L (0-35) 11/27/23 07:49
Alkaline Phosphatase 60 U/L (38-126) 11/27/23 07:49
Total Protein 6.0 g/dl (6.3-8.2) L 11/27/23 07:49
Albumin 3.7 g/dl (3.5-5.0) 11/27/23 07:49
Physical Exam
-
NAD AAOx3
ABD: soft, ND NTTP
--- NOTE | 2023-11-27 13:39 | W.DCSUMMARY ---
Discharge Summary
Discharge Data
Date of Admission: 11/23/23
Date of Discharge: 11/27/23
-
Pending Results: No
Hospital Course
73-year-old female with past medical history of appendiceal cancer, pseudomyxoma peritonei, cholecystectomy, total hysterectomy, splenectomy, omentectomy came to the hospital with nausea and vomiting noted to have small bowel obstruction secondary
lesions. Patient was managed conservatively with IV fluids and bowel rest. Patient was seen by surgery throughout hospitalization. Over time patient symptoms improved and she was able to tolerate diet. Once patient symptoms improved and she was
able to tolerate diet, she was then discharged home with instructions to follow-up with all her physicians outpatient.
Discharge Plan
-
Patient Disposition: Home (Routine Discharge)
Discharge Diagnosis/Procedures: Small bowel obstruction
Mild hypokalemia
Diet: As tolerated
Activity: As tolerated
Driving Restrictions: As prior to admission
Bathing Restrictions: None
Activity Restrictions/Additional Instructions:
Please follow-up with your primary care provider
Referrals:
Cesar De Luna MD [Family Provider] - in less than 1 week
Prescriptions:
Continued
cyanocobalamin (vitamin B-12) 1,000 MCG tablet
1,000 mcg PO DAILY
cholecalciferol (vitamin D3) 1,000 UNITS tablet
1,000 units PO DAILY
ascorbic acid (vitamin C) [Vitamin C] 500 mg Tablet
500 mg PO DAILY
magnesium 200 mg Tablet
200 mg PO DAILY
Discharge Orders:
Discharge Patient (As Directed); Ordered 11/27/23
Ordered By: Kyle Cortez
[2023-11-27 14:00] VITALS: BP 124/88
--- NOTE | 2023-11-27 14:04 | CM ---
Patient seen bedside.
patient declines home care needs.
IMM completed.
Plan d/c home no needs.
== END 2023-11-27 15:07 | disposition home or self-care (01) | DRG 389 ==
LOC: 4 WEST ACU 08:30
PROVIDERS: Emergency Medicine; ADMITTING PHYSICIAN Hospitalist; ATTENDING PHYSICIAN Internal Medicine; CONSULT PHYSICIAN Surgery; EMERGENCY PHYSICIAN Emergency Medicine; FAMILY PHYSICIAN Family Medicine
DX: K56.699 Other intestinal obstruction unspecified as to partial versus complete obstruction (principal); C78.6 Secondary malignant neoplasm of retroperitoneum and peritoneum; E44.0 Moderate protein-calorie malnutrition; R73.9 Hyperglycemia, unspecified; E83.52 Hypercalcemia; E78.00 Pure hypercholesterolemia, unspecified; E87.6 Hypokalemia; Z85.038 Personal history of other malignant neoplasm of large intestine; Z90.710 Acquired absence of both cervix and uterus; Z90.81 Acquired absence of spleen; Z68.22 Body mass index [BMI] 22.0-22.9, adult
CPT/HCPCS: 74018; 74177; 80053; 83036; 83690; 85025; 85027; 87502; 87811; 96361; 96374; 96375; 96376; 99285; Q9967

== ENCOUNTER → 2023-12-26 10:13 | Outpatient (REF) | payer MEDICARE, OTHER, SELFPAY | LOC: RAD 10:13 | PROVIDERS: ATTENDING PHYSICIAN Family Medicine; FAMILY PHYSICIAN Family Medicine | DX: K56.609 Unspecified intestinal obstruction, unspecified as to partial versus complete obstruction (principal) | CPT/HCPCS: 74246; 74248 ==

== ENCOUNTER → 2024-02-13 06:30 | Day surgery (SDC) | payer MEDICARE, OTHER, SELFPAY | LOC: GI 06:30 | PROVIDERS: ATTENDING PHYSICIAN Internal Medicine Gastroenterology | DX: K29.70 Gastritis, unspecified, without bleeding (principal); K31.89 Other diseases of stomach and duodenum; R93.3 Abnormal findings on diagnostic imaging of other parts of digestive tract | CPT/HCPCS: 43239; 88305; 88342 ==

== ENCOUNTER 2024-03-13 22:17 | Emergency (ER) | payer MEDICARE, OTHER, SELFPAY ==
[2024-03-13 22:19] VITALS: BP 111/73
[2024-03-13 22:35] LABS: Hematocrit 36.8 % (37.0-47.0); Hemoglobin 12.9 g/dL (12.0-16.0); Mean Corp Hgb Conc. 35.1 g/dL (33.0-37.0); Mean Corpuscular Hgb 32.7 pg (27.0-31.0); Mean Corpuscular Volume 93.4 fL (81.0-99.0); Platelet Count 331 10^3/uL (130-400); Red Blood Cell Count 3.94 10^6/uL (4.20-5.40); Red Cell Dist. Width 13.1 % (11.5-14.5); White Blood Cell Count 7.9 10^3/uL (4.8-10.8)
[2024-03-13 22:46] LABS: ALT (SGPT) 24 U/L (0-35); AST (SGOT) 26 U/L (14-36); Albumin 4.5 g/dl (3.5-5.0); Alkaline Phosphatase 78 U/L (38-126); Blood Urea Nitrogen 23 mg/dl (7-17); Calcium 9.7 mg/dl (8.4-10.2); Carbon Dioxide 24 mmol/L (22-30); Chloride 107 mmol/L (98-107); Glucose 163 mg/dl (70-99); Sodium 138 mmol/L (135-145); Total Bilirubin 0.6 mg/dl (0.2-1.3); Total Protein 7.1 g/dl (6.3-8.2); eGFR > 60.00
[2024-03-13 22:53] LABS: Absolute Neutrophils -Man Diff 1.9 10^3/uL (1.4-6.5); Band Neutrophils 0 % (0-3); Eosinophils 6 % (0-6); Lymphocytes 62 % (20-51); Monocytes 7 % (2-9); Normal RBC Morphology Yes; Platelets Checked Yes; Segmented Neutrophils 25 % (42-75)
[2024-03-13 22:54] LABS: Total Cells Counted 100
--- NOTE | 2024-03-13 23:25 | ED.SKININJ ---
HPI-Injury
General
Chief Complaint: Bite
Source: patient
Exam Limitations: none
Time Seen by Provider: 03/13/24 22:52
Nursing documentation reviewed up to this point in time: agreed with
History of Present Illness-Injury
Initial Injury comments:
Pleasant 73-year-old female who presents with right elbow 'lesion '. Patient states that she noticed a 'bull's-eye' on her right elbow. She is concerned for Lyme's. She denies any known tick bites. Reports no other symptoms. Patient does have a
remote history of Lyme disease.
Past History
Past History
ED Past Medical History: Cancer (Appendiceal with pseudomyxoma peritonei), Hypercholesterolemia, Valvular disease (MVP) and Other (Trigeminal neuralgia, B12 deficiency, diverticulitis, small bowel obstruction)
ED Past Surgical History: Appendectomy, Bowel resection, Cholecystectomy, Gynecological (Hysterectomy) and Other
Social History
Tobacco: Non-smoker
Alcohol: None
Drug: None
Personal:
Living: with family
Employment: Retired
Family History
Family History: Other (Grandparent with coronary disease, sister with coronary disease)
Phy Exam
General Physical Exam
General Presentation: well appearing and no apparent distress
General Skin: warm and dry
General Habitus: normal
Cardiovascular Exam
Cardiovascular Exam: regular rate/rhythm and no edema
Pulmonary Exam
Pulmonary Exam: no respiratory distress and no cough
Neurological Exam
Neurological Exam: alert and oriented x3
Skin Exam
Skin Exam: normal color, warm/dry and other (Area on the lateral portion of the right elbow that shows ecchymosis. There is an area of central clearing but there is a bony prominence underneath. I do not feel that this is erythema migrans. I do
feel that this is ecchymosis and the bony prominence because an uneven distribution of the blood.)
Psychiatric Exam
Psychiatric Exam: normal mood/affect
Course
Orders/Labs/Results
Orders:
Orders
03/13/24 22:28
CBC/With Diff [Complete Blood Count/With Diff] Urgent
CMP [Comprehensive Metabolic Panel] Urgent
Lyme Progressive Urgent
Manual Differential Urgent
03/13/24 23:16
Electrocardiogram (*1) Urgent
Reason for Study: QTc Monitoring
EKG- Treatment ONCE
03/13/24 23:26
Doxycycline [Vibramycin] 200 mg PO NOW STA
Abnormal Lab Results
03/13/24
22:28
RBC 3.94 L 10^6/uL
(4.20-5.40)
Hct 36.8 L %
(37.0-47.0)
MCH 32.7 H pg
(27.0-31.0)
MPV 11.0 H fL
(7.4-10.4)
Segmented Neutrophils 25 L %
(42-75)
Lymphocytes (Manual) 62 H %
(20-51)
BUN 23 H mg/dl
(7-17)
Glucose 163 H mg/dl
(70-99)
03/13/24 22:28
03/13/24 22:28
Vital Signs
Initial and Last Documented VS:
Initial Vital Signs
Temp Pulse Resp BP Pulse Ox
97.8 F 89 18 111/73 97
03/13/24 22:19 03/13/24 22:19 03/13/24 22:19 03/13/24 22:19 03/13/24 22:19
Last Documented Vital Signs
Temp Pulse Resp BP Pulse Ox
98.6 F 82 18 108/52 99
03/13/24 23:37 03/13/24 23:37 03/13/24 23:37 03/13/24 23:37 03/13/24 23:37
*Critical Care Note
Total Time (30-74mins, 75-104mins- exclusive of procedures): Not Applicable
Update Note
Update Note:
EKG shows normal sinus rhythm rate of 68 normal. Normal axis. No evidence of acute ischemia present.
Patient to get a one-time dose of doxycycline. I do not feel that this is Lyme disease but I do feel that a one-time prophylactic dose is acceptable.
ED Attending Note
-
Portions of this chart may have been created with voice recognition software.� Occasional wrong word or��sound alike� substitutions may have occurred due to the inherent limitations of voice recognition software.
Discharge Plan
Departure
Patient Disposition: Home (Routine Discharge)
Date of Disposition: 03/13/24
Time of Disposition: 23:29
Patient with high blood pressure during this ER visit?: No
Discharge Problem:
Contusion
Instructions: Wound Care (DC), Contusion
Prescriptions:
No Action
cyanocobalamin (vitamin B-12) 1,000 MCG tablet
1,000 mcg PO DAILY
cholecalciferol (vitamin D3) 1,000 UNITS tablet
1,000 units PO DAILY
ascorbic acid (vitamin C) [Vitamin C] 500 mg Tablet
500 mg PO DAILY
magnesium 200 mg Tablet
200 mg PO DAILY
Referrals:
Cesar De Luna MD [Family Provider] -
Activity Restrictions/Additional Instructions:
It was a pleasure meeting you and taking part in your care. We hope for your continued healing and wellness.
Please read discharge instructions in their entirety. However, they are for general education and may not describe your exact diagnosis at discharge. Information on your ER visit and medical conditions were discussed with you along with appropriate
follow up information...
If indicated, please take your medications as instructed and indicated on discharge paperwork.
Please schedule a follow up appointment as directed. Call to schedule an appointment
Please return to the emergency department with ANY change in, persisting, or worsening of symptoms. If any of your symptoms do not improve, or persist, or become more severe within 6-12 hours, please return to the emergency department for further
care.
Please return to the emergency department if you develop a headache, neck pain/stiffness, fever greater than 100.4F, chest pain, shortness of breath, persistent nausea, vomiting, slurred speech, difficulty walking, numbness/tingling, weakness, signs
of infection or any other symptoms that are worrisome to you.
If you have any questions or concerns please do not hesitate to call the Hospital at or E-mail me directly at [email or web address]
Interventions
Interventions:
*Risk Screen - Suicide Last Done: 03/13/24 22:19
*General Assessment Last Done: 03/13/24 22:19
*Neglect/Abuse Screening Last Done: 03/13/24 22:19
*Nursing Disposition Last Done: 03/13/24 23:37
ED-Skin Assessment Last Done: 03/13/24 23:27
Discharge Date and Time
Discharge Date/Time: 03/13/24 23:38
Print Language: JAPANESE
[2024-03-13] MEDS: VIBRAMYCIN 200 MG PO (23:34)
[2024-03-13 23:37] VITALS: BP 108/52
== END 2024-03-13 23:38 | disposition home or self-care (01) ==
LOC: EMR 22:17
PROVIDERS: EMERGENCY PHYSICIAN Student in an Organized Health Care Education/Training Program; FAMILY PHYSICIAN Family Medicine
DX: S50.01XA Contusion of right elbow, initial encounter (principal); X58.XXXA Exposure to other specified factors, initial encounter; Z86.19 Personal history of other infectious and parasitic diseases
CPT/HCPCS: 99284; 80053; 85025; 86618; 93005

== ENCOUNTER 2024-06-10 10:36 | Emergency (ER) | payer MEDICARE, OTHER, SELFPAY ==
[2024-06-10 10:59] VITALS: BP 119/58
--- NOTE | 2024-06-10 12:35 | ED.GENMED ---
History of Present Illness
General
Chief Complaint: Abdominal Symptoms
Time Seen by Provider: 06/10/24 11:34
History of Present Illness
History of Present Illness:
73-year-old female with prior history of colon cancer status post bowel resection with history of obstruction presenting to the emergency department for episode of abdominal pain and nausea. Patient reports prior to arrival she was having severe
pain to her abdomen with associated nausea and diaphoresis. She went home and had some water and thought that she felt better, however had another episode which prompted her to come to the hospital. She drank some more water and has since been
asymptomatic. Denies any present abdominal pain. Does report that she is prone to getting dehydrated. She notes that she takes a medication that helps control her bowel movements after getting her gallbladder removed. She forgot to take it
yesterday and did have diarrhea, which she thinks is contributing to her dehydration. Denies any urinary complaints. Denies chest pain or difficulty breathing. Denies fever. Denies additional acute medical complaints
Past History
Past History
ED Past Medical History: Cancer (Appendiceal with pseudomyxoma peritonei), Hypercholesterolemia, Valvular disease (MVP) and Other (Trigeminal neuralgia, B12 deficiency, diverticulitis, small bowel obstruction)
ED Past Surgical History: Appendectomy, Bowel resection, Cholecystectomy, Gynecological (Hysterectomy) and Other
Social History
Tobacco: Non-smoker
Alcohol: None
Drug: None
Personal:
Living: with family
Employment: Retired
Family History
Family History: Other (Grandparent with coronary disease, sister with coronary disease)
Phy Exam
Physical Exam
Physical Exam:
General: Well-appearing, no clinical signs of dehydration, nontoxic and in no acute distress
HEENT: protecting airway
Neck: appears supple
CV: Normal heart rate, regular rhythm
Resp: No accessory muscle use, no increased work of breathing, lungs clear to auscultation bilaterally
Abd: Soft and non-distended, no tenderness to palpation
Extremities: No deformities, no swelling
Neuro: alert, no focal neurologic deficit
: deferred
Rectal: deferred
Psych: Normal affect
Skin: Intact
Course
Orders/Labs/Results
Orders:
Orders
06/10/24 10:37
Electrocardiogram (*1) Urgent
Reason for Study: Chest Pain
EKG- Treatment ONCE
06/10/24 11:59
0.9% Sodium Chloride 1000 ml [Nss] 1,000 ml IV BOLUS
06/10/24 12:12
Basic Metabolic Panel Urgent
Complete Blood Count/With Diff Urgent
Lipase Urgent
06/10/24 12:21
Urinalysis Reflex To Culture Urgent
Date Specimen was Collected: 06/10/24
Time Specimen was Collected: 12:19
Abnormal Lab Results
06/10/24 06/10/24
12:12 12:21
WBC 12.9 H 10^3/uL
(4.8-10.8)
RBC 3.98 L 10^6/uL
(4.20-5.40)
Hct 36.7 L %
(37.0-47.0)
MCH 32.7 H pg
(27.0-31.0)
MPV 11.0 H fL
(7.4-10.4)
Carbon Dioxide 19 L mmol/L
(22-30)
BUN 26 H mg/dl
(7-17)
Urine Bilirubin 1+ A
(Negative)
06/10/24 12:12
06/10/24 12:12
Vital Signs
Initial and Last Documented VS:
Initial Vital Signs
Temp Pulse Resp BP Pulse Ox
97.6 F 90 20 119/58 98
06/10/24 10:59 06/10/24 10:59 06/10/24 10:59 06/10/24 10:59 06/10/24 10:59
Last Documented Vital Signs
Temp Pulse Resp BP Pulse Ox
97.6 F 90 20 119/58 98
06/10/24 10:59 06/10/24 10:59 06/10/24 10:59 06/10/24 10:59 06/10/24 10:59
MDM/Problems Addressed
MDM/Problems Addressed:
73-year-old female with history of colon cancer s/p resection and history of bowel obstruction presenting for episode of abdominal pain with nausea and diaphoresis. Vital signs on arrival are normal.
On exam, patient is well-appearing, no acute distress or discomfort. She notes that her symptoms have currently improved after drinking some fluids. Patient afebrile, nontoxic. Abdomen is soft, nontender, nondistended with lower suspicion for
severe acute process or obstructive pathology. Will screen with laboratory analysis and reassess, and monitor patient's abdominal symptoms
13:20 -patient's labs are relatively unremarkable, mild leukocytosis. On reassessment, patient continues to report symptom improvement. Patient would prefer to go home. Feel reasonable, advised continued oral hydration. Strict return precautions
communicated and patient verbalized understanding
*EKG
Interpreted by ED Provider?: Yes
EKG Intrepretation Date: 06/10/24
EKG Intrepretation Time: 12:39
Interpretation: normal
Comparison EKG: no changes (03/13/24)
Heart Rate: 75
Rate: normal
Rhythm: sinus
[place]: normal axis
Interval: normal interval
QRS Pattern: normal QRS
Ischemia: no ischemia
*Critical Care Note
Total Time (30-74mins, 75-104mins- exclusive of procedures): Not Applicable
ED Attending Note
-
Portions of this chart may have been created with voice recognition software.� Occasional wrong word or��sound alike� substitutions may have occurred due to the inherent limitations of voice recognition software.
Discharge Plan
Departure
Prescriptions:
No Action
cyanocobalamin (vitamin B-12) 1,000 MCG tablet
1,000 mcg PO DAILY
cholecalciferol (vitamin D3) 1,000 UNITS tablet
1,000 units PO DAILY
ascorbic acid (vitamin C) [Vitamin C] 500 mg Tablet
500 mg PO DAILY
magnesium 200 mg Tablet
200 mg PO DAILY
Referrals:
Cesar De Luna MD [Family Provider] -
Interventions
Interventions:
*Risk Screen - Suicide Last Done: 06/10/24 10:59
*General Assessment Last Done: 06/10/24 10:59
*Neglect/Abuse Screening Last Done: 06/10/24 10:59
ZF-Hqqjnc-Hbixepjeta Assessment Last Done: 06/10/24 12:20
Discharge Date and Time
Print Language: EQUATORIAL GUINEAN
[2024-06-10 12:39] LABS: Hematocrit 36.7 % (37.0-47.0); Mean Corp Hgb Conc. 35.4 g/dL (33.0-37.0); Mean Corpuscular Hgb 32.7 pg (27.0-31.0); Mean Corpuscular Volume 92.2 fL (81.0-99.0); Platelet Count 363 10^3/uL (130-400); Red Blood Cell Count 3.98 10^6/uL (4.20-5.40); Red Cell Dist. Width 13.2 % (11.5-14.5); White Blood Cell Count 12.9 10^3/uL (4.8-10.8)
[2024-06-10 12:39] LABS: Urine Albumin Negative (Neg - Trace); Urine Bilirubin 1+ (Negative); Urine Character Clear (Clear); Urine Color Yellow; Urine Glucose Negative (Negative); Urine Ketone Negative (Negative); Urine Leukocyte Negative (Negative); Urine Nitrite Negative (Negative); Urine Occult Blood Negative (Negative); Urine Specific Gravity 1.015 (<1.030); Urine Urobilinogen Negative (Neg - 1+)
[2024-06-10 12:48] LABS: Blood Urea Nitrogen 26 mg/dl (7-17); Calcium 9.4 mg/dl (8.4-10.2); Carbon Dioxide 19 mmol/L (22-30); Chloride 105 mmol/L (98-107); Glucose 83 mg/dl (70-99); Lipase 107 U/L (23-300); Sodium 138 mmol/L (135-145); eGFR > 60.00
[2024-06-10 13:23] LABS: % Basophils 0.9 % (0-2); % Eosinophils 0.9 % (0-6); % Immature Granulocytes 0.3 % (0-0.5); % Lymphocytes 14.6 % (20.5-51.1); % Neutrophils 76.3 % (42.2-75.2); Absolute Basophils 0.1 10^3/uL (0-0.2); Absolute Eosinophils 0.1 10^3/uL (0-0.7); Absolute Lymphocytes 1.9 10^3/uL (1.2-3.4); Absolute Monocytes 0.9 10^3/uL (0.1-0.6); Absolute Neutrophils 9.8 10^3/uL (1.4-6.5); Nucleated Red Blood Cells % 0 %
[2024-06-10 13:25] VITALS: BP 129/86
== END 2024-06-10 13:28 | disposition home or self-care (01) ==
LOC: EMR 10:36
PROVIDERS: EMERGENCY PHYSICIAN Student in an Organized Health Care Education/Training Program; FAMILY PHYSICIAN Family Medicine
DX: E86.0 Dehydration (principal); R10.9 Unspecified abdominal pain
CPT/HCPCS: 99284; 80048; 81003; 83690; 85025; 93005

== ENCOUNTER → 2024-07-12 09:12 | Outpatient (REF) | payer MEDICARE, OTHER, SELFPAY | LOC: HWRAD 09:12 | PROVIDERS: ATTENDING PHYSICIAN Family Medicine | DX: R07.81 Pleurodynia (principal) | CPT/HCPCS: 71046 ==

== ENCOUNTER 2024-07-13 20:23 | Emergency (ER) | payer MEDICARE, OTHER, SELFPAY ==
[2024-07-13 20:30] VITALS: BP 130/66
[2024-07-13 20:51] LABS: Hematocrit 36.6 % (37.0-47.0); Hemoglobin 12.7 g/dL (12.0-16.0); Mean Corp Hgb Conc. 34.7 g/dL (33.0-37.0); Mean Corpuscular Hgb 32.2 pg (27.0-31.0); Mean Corpuscular Volume 92.7 fL (81.0-99.0); Mean Platelet Volume 10.4 fL (7.4-10.4); Platelet Count 403 10^3/uL (130-400); Red Blood Cell Count 3.95 10^6/uL (4.20-5.40); Red Cell Dist. Width 13.2 % (11.5-14.5); White Blood Cell Count 9.2 10^3/uL (4.8-10.8)
[2024-07-13 20:59] LABS: ALT (SGPT) 31 U/L (0-35); AST (SGOT) 21 U/L (14-36); Albumin 4.4 g/dl (3.5-5.0); Alkaline Phosphatase 65 U/L (38-126); Blood Urea Nitrogen 26 mg/dl (7-17); Calcium 9.5 mg/dl (8.4-10.2); Carbon Dioxide 25 mmol/L (22-30); Chloride 106 mmol/L (98-107); Glucose 114 mg/dl (70-99); Potassium 4.5 mmol/L (3.5-5.1); Sodium 140 mmol/L (135-145); Total Bilirubin 0.5 mg/dl (0.2-1.3); Total Protein 6.8 g/dl (6.3-8.2); eGFR 39.23
[2024-07-13 21:01] LABS: % Eosinophils 2.2 % (0-6); % Immature Granulocytes 0.1 % (0-0.5); % Lymphocytes 56.8 % (20.5-51.1); % Monocytes 7.7 % (1.7-9.3); % Neutrophils 32.2 % (42.2-75.2); Absolute Basophils 0.1 10^3/uL (0-0.2); Absolute Eosinophils 0.2 10^3/uL (0-0.7); Absolute Lymphocytes 5.3 10^3/uL (1.2-3.4); Absolute Monocytes 0.7 10^3/uL (0.1-0.6); Nucleated Red Blood Cells % 0 %
[2024-07-13 21:05] LABS: Troponin I < 0.012 ng/ml
[2024-07-13 23:18] VITALS: BMI 20.9
[2024-07-13 23:27] VITALS: BP 113/84
[2024-07-14 00:58] VITALS: BP 131/63
[2024-07-14 01:00] VITALS: BP 127/73
--- NOTE | 2024-07-14 01:11 | ED.GENMED ---
History of Present Illness
General
Chief Complaint: Chest Problem
Source: patient
Time Seen by Provider: 07/13/24 23:04
Nursing documentation reviewed up to this point in time: agreed with
History of Present Illness
History of Present Illness:
Pleasant 73-year-old female presents emergency department with chest pain. She states that she has been having chest pain for the last 4 weeks. She reports that it has been getting increasingly worse. She states that this feels similar to
previous episodes of pleurisy. She was given steroids by her PCP but it has not worked. Denied fever, chills, nausea or vomiting. She has a history of pneumonia but states that this feels different. She is a non-smoker and does not have any
tobacco history.
Past History
Past History
ED Past Medical History: Cancer (Appendiceal with pseudomyxoma peritonei), Hypercholesterolemia, Valvular disease (MVP) and Other (Trigeminal neuralgia, B12 deficiency, diverticulitis, small bowel obstruction)
ED Past Surgical History: Appendectomy, Bowel resection, Cholecystectomy, Gynecological (Hysterectomy) and Other
Social History
Tobacco: Non-smoker
Alcohol: None
Drug: None
Personal:
Living: with family
Employment: Retired
Family History
Family History: Other (Grandparent with coronary disease, sister with coronary disease)
Review of Systems
Review of Systems
Allergies reviewed?: Yes
Other source history: family
All Other Systems: Not applicable
Constitutional: Reports no symptoms
EENT: Reports no symptoms
Respiratory: Reports no symptoms
Cardiac: Reports chest pain; Denies palpitations or syncope
ABD/GI: Reports no symptoms
: Reports no symptoms
Musculoskeletal: Reports no symptoms
Skin: Reports no symptoms
Neurological: Reports no symptoms
Endocrine: Reports no symptoms
Hematologic/Lymphatic: Reports no symptoms
Psychiatric: Reports no symptoms
Phy Exam
General Physical Exam
General Presentation: well appearing and no apparent distress
General Skin: warm and dry
General Habitus: normal
General Mental: alert
General Hydration: appears well hydrated
ENT Exam
ENT Exam: EOMI, pharynx normal, neck supple and normocephalic
Eye Exam
Eye Exam: PERRL, cornea clear and conjunctiva normal
Cardiovascular Exam
Cardiovascular Exam: regular rate/rhythm, no edema, no murmur and normal peripheral pulses
Pulmonary Exam
Pulmonary Exam: lungs clear, no respiratory distress, no rales, no crackles, no rhonchi, no stridor, no wheezing and no cough
Gastrointestinal Exam
Gastrointestinal Exam: normal bowel sounds, non tender, soft, no organomegaly, no pulsatile mass and non distended
Neurological Exam
Neurological Exam: alert, oriented x3, no motor deficits and speech normal
Musculoskeletal Exam
Musculoskeletal Exam: full ROM and no edema
Skin Exam
Skin Exam: normal color, warm/dry, no rash and no petechia
Psychiatric Exam
Psychiatric Exam: normal mood/affect
Course
Orders/Labs/Results
Orders:
Orders
07/13/24 20:25
Electrocardiogram (*1) Urgent
Reason for Study: Chest Pain
EKG- Treatment ONCE
07/13/24 20:35
Comprehensive Metabolic Panel Urgent
07/13/24 20:36
Complete Blood Count/With Diff Urgent
Troponin I Urgent
07/13/24 23:32
CT Chest Pe Study Urgent
Comment:
Reason For Exam: chest pain,
Abnormal Lab Results
07/13/24 07/13/24
20:35 20:36
RBC 3.95 L 10^6/uL
(4.20-5.40)
Hct 36.6 L %
(37.0-47.0)
MCH 32.2 H pg
(27.0-31.0)
Plt Count 403 H 10^3/uL
(130-400)
Absolute Lymphs (auto) 5.3 H 10^3/uL
(1.2-3.4)
Absolute Monos (auto) 0.7 H 10^3/uL
(0.1-0.6)
Neutrophils % 32.2 L %
(42.2-75.2)
Lymphocytes % 56.8 H %
(20.5-51.1)
BUN 26 H mg/dl
(7-17)
Creatinine 1.4 H mg/dL
(0.6-1.0)
Glucose 114 H mg/dl
(70-99)
07/13/24 20:36
07/13/24 20:35
Vital Signs
Initial and Last Documented VS:
Initial Vital Signs
Temp Pulse Resp BP Pulse Ox
97.6 F 94 14 130/66 97
07/13/24 20:30 07/13/24 20:30 07/13/24 20:30 07/13/24 20:30 07/13/24 20:30
Last Documented Vital Signs
Temp Pulse Resp BP Pulse Ox
97.6 F 75 14 113/84 99
07/13/24 20:30 07/13/24 23:30 07/13/24 23:30 07/13/24 23:27 07/13/24 23:30
*Radiology
Radiology exam reviewed: radiology read reviewed
*Pulse Oximetry
Patient hypoxic: no
*EKG
Interpreted by ED Provider?: Yes
EKG Intrepretation Date: 07/14/24
Comparison EKG: no comparison EKG present
Heart Rate: 84
Rate: normal
Rhythm: sinus
[place]: normal axis
Interval: normal interval
QRS Pattern: normal QRS
Ischemia: no ischemia
*Senior [employer] Consultant Interpretation
Rate: normal
Interpretation: normal
Rhythm: sinus
*Critical Care Note
Total Time (30-74mins, 75-104mins- exclusive of procedures): Not Applicable
Patient Management
Social determinants of health affecting care: Strong social support
Update Note
Update Note:
IMPRESSION:
No pulmonary embolus. Technically adequate study. No thoracic aneurysm or dissection.
Lungs are clear.
Mediastinal and cardiac structures are unremarkable. Visualized portions of the upper abdomen are unremarkable.
ED Attending Note
-
Portions of this chart may have been created with voice recognition software.� Occasional wrong word or��sound alike� substitutions may have occurred due to the inherent limitations of voice recognition software.
Discharge Plan
Departure
Patient Disposition: Home (Routine Discharge)
Date of Disposition: 07/14/24
Time of Disposition: 01:13
Patient with high blood pressure during this ER visit?: Yes
Discharge Problem:
Chest pain, Pleurisy
Instructions: Pleuritic chest pain, Chest Pain PCP Follow Up, Pleurisy
Prescriptions:
New
diclofenac sodium 75 mg tablet,delayed release (DR/EC)
75 mg PO BID Qty: 10 0RF
No Action
cyanocobalamin (vitamin B-12) 1,000 MCG tablet
1,000 mcg PO DAILY
cholecalciferol (vitamin D3) 1,000 UNITS tablet
1,000 units PO DAILY
ascorbic acid (vitamin C) [Vitamin C] 500 mg Tablet
500 mg PO DAILY
magnesium 200 mg Tablet
200 mg PO DAILY
Referrals:
Cesar De Luna MD [Family Provider] -
Activity Restrictions/Additional Instructions:
Your prescriptions were sent electronically to the pharmacy that you specified.
It was a pleasure meeting you and taking part in your care. We hope for your continued healing and wellness.
Please read discharge instructions in their entirety. However, they are for general education and may not describe your exact diagnosis at discharge. Information on your ER visit and medical conditions were discussed with you along with appropriate
follow up information...
If indicated, please take your medications as instructed and indicated on discharge paperwork.
Please schedule a follow up appointment as directed. Call to schedule an appointment
Please return to the emergency department with ANY change in, persisting, or worsening of symptoms. If any of your symptoms do not improve, or persist, or become more severe within 6-12 hours, please return to the emergency department for further
care.
Please return to the emergency department if you develop a headache, neck pain/stiffness, fever greater than 100.4F, chest pain, shortness of breath, persistent nausea, vomiting, slurred speech, difficulty walking, numbness/tingling, weakness, signs
of infection or any other symptoms that are worrisome to you.
If you have any questions or concerns please do not hesitate to call the Hospital at or E-mail me directly at [email or web address]
Interventions
Interventions:
*Risk Screen - Suicide Last Done: 07/13/24 20:30
*General Assessment Last Done: 07/13/24 20:30
*Neglect/Abuse Screening Last Done: 07/13/24 20:30
ED- Fall Risk Assessment Last Done: 07/13/24 23:18
*ED COVID-19 Vaccine History Last Done: 07/13/24 23:18
ED- Cardiac Assessment Last Done: 07/13/24 23:18
ED- Pulmonary Assessment Last Done: 07/13/24 23:18
Discharge Date and Time
Print Language: MONEGASQUE
== END 2024-07-14 01:30 | disposition home or self-care (01) ==
LOC: EMR 20:23
PROVIDERS: Emergency Medicine; EMERGENCY PHYSICIAN Student in an Organized Health Care Education/Training Program; FAMILY PHYSICIAN Family Medicine
DX: R09.1 Pleurisy (principal); R07.89 Other chest pain; R03.0 Elevated blood-pressure reading, without diagnosis of hypertension
CPT/HCPCS: 99285; 71275; 80053; 84484; 85025; 93005; Q9967

== ENCOUNTER → 2025-01-13 10:34 | Outpatient (REF) | payer MEDICARE, OTHER, SELFPAY | LOC: HWRAD 10:34 | PROVIDERS: ATTENDING PHYSICIAN Physician Assistant Medical | DX: R05.1 Acute cough (principal); R09.1 Pleurisy | CPT/HCPCS: 71046 ==

== ENCOUNTER 2025-03-06 09:58 | Emergency (ER) | payer MEDICARE, OTHER, SELFPAY ==
[2025-03-06 10:04] VITALS: BP 143/76
[2025-03-06 11:39] VITALS: BP 141/73
[2025-03-06 12:00] VITALS: BP 142/83
--- NOTE | 2025-03-06 12:28 | ED.GENMED ---
History of Present Illness
General
Chief Complaint: Swallowing Problem
Source: patient
Exam Limitations: none
Time Seen by Provider: 03/06/25 11:11
Nursing documentation reviewed up to this point in time: agreed with
History of Present Illness
History of Present Illness:
Patient presents to ED for an evaluation secondary to persistent sensation of pill being stuck in her throat. Patient reports taking large doxycycline capsule around midnight and going to sleep without any difficulty. However, when she woke up
this morning, she immediately felt a sensation of something being stuck in her throat. Since then, patient has been able to tolerate her saliva and liquid, but with mild difficulty. Overall, however, patient does state that her symptoms have
improved since this morning. Denies shortness of breath. Denies nausea or vomiting. Denies previous history of similar symptoms.
Past History
Past History
ED Past Medical History: Cancer (Appendiceal with pseudomyxoma peritonei), Hypercholesterolemia, Valvular disease (MVP) and Other (Trigeminal neuralgia, B12 deficiency, diverticulitis, small bowel obstruction)
ED Past Surgical History: Appendectomy, Bowel resection, Cholecystectomy, Gynecological (Hysterectomy) and Other
Social History
Tobacco: Non-smoker
Alcohol: None
Drug: None
Personal:
Living: with family
Employment: Retired
Family History
Family History: Other (Grandparent with coronary disease, sister with coronary disease)
Review of Systems
Review of Systems
Allergies reviewed?: Yes
All Other Systems: ROS reviewed and negative except as documented in HPI and ROS
Constitutional: Reports no symptoms
EENT: Reports other (Pill stuck in throat sensation)
Respiratory: Denies trouble breathing
ABD/GI: Reports no symptoms and other; Denies vomiting
Musculoskeletal: Reports no symptoms
Skin: Reports no symptoms
Neurological: Reports no symptoms
Phy Exam
Physical Exam
Physical Exam:
Physical Exam
General: no apparent distress, not acutely ill. afebrile
Head: nc/at. eomi
Neck: supple. normal range of motion. normal posterior pharynx
Lungs: no acute respiratory distress. clear bilaterally
Abdomen: normal bowel sounds. not tender.
Neuro: alert and oriented. no focal neurological deficits
Skin: no rash
Psychiatric: well kept. interactive and cooperative
Extremities: no edema. no calf tenderness.
Course
Vital Signs
Initial and Last Documented VS:
Initial Vital Signs
Temp Pulse Resp BP Pulse Ox
98.3 F 91 18 143/76 98
03/06/25 10:04 03/06/25 10:04 03/06/25 10:04 03/06/25 10:04 03/06/25 10:04
Last Documented Vital Signs
Temp Pulse Resp BP Pulse Ox
98.3 F 76 17 142/83 100
03/06/25 10:04 03/06/25 12:30 03/06/25 12:30 03/06/25 12:00 03/06/25 12:50
MDM/Problems Addressed
MDM/Problems Addressed:
Patient with likely resolving sensation of foreign body in her throat, and is able to tolerate water in ED without difficulty. As such, patient was discharged home with recommendation to continue liquid diet over the next 1 to 2 days, until
resolution, along with starting PPI short-term, as well as GI follow-up as an outpatient, if symptoms persist. Patient advised to return to ED with worsening symptoms. Patient expresses understanding at time of discharge.
*Pulse Oximetry
SaO2: 100
Oxygen Mode of Delivery: Room air
Patient hypoxic: no
*Critical Care Note
Total Time (30-74mins, 75-104mins- exclusive of procedures): Not Applicable
ED Attending Note
-
Portions of this chart may have been created with voice recognition software.� Occasional wrong word or��sound alike� substitutions may have occurred due to the inherent limitations of voice recognition software.
Discharge Plan
Departure
Patient Disposition: Home (Routine Discharge)
Date of Disposition: 03/06/25
Time of Disposition: 12:28
Patient with high blood pressure during this ER visit?: Yes
Condition: Good
Discharge Problem:
Esophageal obstruction
Instructions: Food Obstruction
Prescriptions:
New
Prilosec 10 mg susp,delayed release for recon
10 mg PO DAILY Qty: 30 0RF
No Action
cyanocobalamin (vitamin B-12) 1,000 MCG tablet
1,000 mcg PO DAILY
cholecalciferol (vitamin D3) 1,000 UNITS tablet
1,000 units PO DAILY
ascorbic acid (vitamin C) [Vitamin C] 500 mg Tablet
500 mg PO DAILY
magnesium 200 mg Tablet
200 mg PO DAILY
diclofenac sodium 75 mg tablet,delayed release (DR/EC)
75 mg PO BID Qty: 10 0RF
Referrals:
Cesar De Luna MD [Family Provider, Family Practice]
Activity Restrictions/Additional Instructions:
As discussed, please follow-up with your GI physician with any further concerns. In the meantime, recommend taking [id number] PPI medication, i.e. Prilosec/Pepcid/Protonix/Nexium, daily x 1 week, starting tomorrow if your symptoms improve.
Please consider return to ED with worsening symptoms.
Interventions
Interventions:
*Risk Screen - Suicide Last Done: 03/06/25 10:04
*General Assessment Last Done: 03/06/25 10:04
*Neglect/Abuse Screening Last Done: 03/06/25 10:04
*ED- Fall Risk Assessment Last Done: 03/06/25 11:31
*ED COVID-19 Vaccine History Last Done: 03/06/25 11:31
*Nursing Disposition Last Done: 03/06/25 12:53
ED- Pulmonary Assessment Last Done: 03/06/25 11:37
Discharge Date and Time
Discharge Date/Time: 03/06/25 12:53
Print Language: [email or web address]
== END 2025-03-06 12:53 | disposition home or self-care (01) ==
LOC: EMR 09:58
PROVIDERS: EMERGENCY PHYSICIAN Emergency Medicine; FAMILY PHYSICIAN Family Medicine
DX: K22.2 Esophageal obstruction (principal); R09.A2 Foreign body sensation, throat; R03.0 Elevated blood-pressure reading, without diagnosis of hypertension; E78.00 Pure hypercholesterolemia, unspecified; I34.1 Nonrheumatic mitral (valve) prolapse; G50.0 Trigeminal neuralgia; E53.8 Deficiency of other specified B group vitamins; K57.92 Diverticulitis of intestine, part unspecified, without perforation or abscess without bleeding; Z90.49 Acquired absence of other specified parts of digestive tract; Z98.0 Intestinal bypass and anastomosis status; Z88.1 Allergy status to other antibiotic agents; Z88.2 Allergy status to sulfonamides; Z88.8 Allergy status to other drugs, medicaments and biological substances
CPT/HCPCS: 99283

== ENCOUNTER 2025-03-23 09:41 | Emergency (ER) | payer MEDICARE, OTHER, SELFPAY ==
[2025-03-23] VITALS (7 sets, daily range): BP systolic 91–126; BP diastolic 56–82
[2025-03-23 09:50] LABS: Glucose - Point of Care 127 mg/dl (70-99)
--- NOTE | 2025-03-23 09:54 | ED.GENMED ---
History of Present Illness
General
Chief Complaint: Weakness
Source: patient
Exam Limitations: none
Time Seen by Provider: 03/23/25 09:44
History of Present Illness
History of Present Illness:
74yoF with a history of mitral valve prolapse presenting via EMS for evaluation after a near syncopal episode. Patient started to feel short of breath last night. She woke this morning and again felt short of breath and 'not right' with an
uncomfortable feeling in her abdomen. She decided to go to the gym but before she started her exercise class, she started to feel dizzy and felt like she was about to pass out. Patient became sweaty and felt her heart racing. EMS arrived and
fingerstick glucose was 61. She was given an oral glucose tab with improvement. She denies any current dizziness and is feeling better but continues to feel like something is not right. She denies any chest pain, vomiting, diarrhea, fevers,
syncope. She ate breakfast this morning which consisted of oat muffins. Her only current medication is colestipol which she takes for diarrhea after her cholecystectomy.
Past History
Past History
ED Past Medical History: Cancer (Appendiceal with pseudomyxoma peritonei), Hypercholesterolemia, Valvular disease (MVP) and Other (Trigeminal neuralgia, B12 deficiency, diverticulitis, small bowel obstruction)
ED Past Surgical History: Appendectomy, Bowel resection, Cholecystectomy, Gynecological (Hysterectomy) and Other
Social History
Tobacco: Non-smoker
Alcohol: None
Drug: None
Personal:
Living: with family
Employment: Retired
Family History
Family History: Other (Grandparent with coronary disease, sister with coronary disease)
Phy Exam
General Physical Exam
General Presentation: well appearing and no apparent distress
General Skin: warm and dry
General Habitus: normal
General Mental: alert
ENT Exam
ENT Exam: normocephalic
Cardiovascular Exam
Cardiovascular Exam: regular rate/rhythm, no edema and no murmur
Pulmonary Exam
Pulmonary Exam: lungs clear, no respiratory distress, no rales, no crackles, no rhonchi and no wheezing
Gastrointestinal Exam
Gastrointestinal Exam: non tender, soft and non distended
Neurological Exam
Neurological Exam: alert
Kelso Coma Scale
Eye Opening: Spontaneous
Verbal Response: Oriented
Motor Response: Obeys Commands
GCS Total Score: 15
Skin Exam
Skin Exam: normal color and warm/dry
Psychiatric Exam
Psychiatric Exam: normal mood/affect
Course
Orders/Labs/Results
Orders:
Orders
03/23/25 09:50
EKG [Electrocardiogram (*1)] Urgent
Reason for Study: Chest Pain
EKG- Treatment ONCE
03/23/25 09:53
Cardiac Monitoring- Treatment ONCE
0.9% Sodium Chloride 500 ml [Nss] 500 ml IV BOLUS
03/23/25 10:08
Complete Blood Count/With Diff Urgent
Comprehensive Metabolic Panel Urgent
D-Dimer Urgent
Lipase Urgent
Lyme Progressive Urgent
Magnesium Urgent
Troponin I Urgent
03/23/25 11:27
CR Chest - 2 Views Urgent
Comment:
Reason For Exam: SOB
Abnormal Lab Results
03/23/25 03/23/25
09:48 10:08
RBC 3.93 L 10^6/uL
(4.20-5.40)
MCH 32.1 H pg
(27.0-31.0)
MPV 11.1 H fL
(7.4-10.4)
Monocytes % 10.1 H %
(1.7-9.3)
Chloride 109 H mmol/L
(98-107)
BUN 25 H mg/dl
(7-17)
Glucose 125 H mg/dl
(70-99)
POC Glucose 127 H mg/dl
(70-99)
03/23/25 10:08
03/23/25 10:08
Vital Signs
Initial and Last Documented VS:
Initial Vital Signs
Temp Pulse Resp BP Pulse Ox
97.5 F 71 16 116/60 100
03/23/25 09:51 03/23/25 09:51 03/23/25 09:51 03/23/25 09:51 03/23/25 09:51
Last Documented Vital Signs
Temp Pulse Resp BP Pulse Ox
97.5 F 71 16 116/60 100
03/23/25 09:51 03/23/25 09:51 03/23/25 09:51 03/23/25 09:51 03/23/25 09:57
MDM/Problems Addressed
Differential Diagnosis Includes:
74yoF here after a near syncopal episode. Episode consisted of lightheadedness, sweating, and palpitations. Fingerstick glucose 61 prehospital and she was given oral glucose tab with improvement. Does report SOB starting last night but denies this
currently. VSS. She is well appearing in no distress. Exam is reassuring. Differential diagnosis includes but is not limited to: hypoglycemia, orthostasis, dehydration, symptomatic anemia, arrhythmia, consider PE although less likely
Initial ED plan: Fingerstick glucose 127 on arrival. Will check cardiac labs, D-dimer, magnesium, EKG, and CXR vs. CT depending on D-dimer results. IV fluid bolus.
*Pulse Oximetry
SaO2: 100
Oxygen Mode of Delivery: Room air
Patient hypoxic: no (100%)
*EKG
Interpreted by ED Provider?: Yes
EKG Intrepretation Date: 03/23/25
Heart Rate: 65
Rate: normal
Rhythm: sinus
[place]: normal axis
Interval: normal interval
QRS Pattern: normal QRS
Ischemia: no ischemia
*Critical Care Note
Total Time (30-74mins, 75-104mins- exclusive of procedures): Not Applicable
Update Note
Update Note:
Labs unremarkable including normal hemoglobin. Glucose 125 on BMP. EKG shows normal sinus rhythm without ischemic changes and troponin within normal limits. D-dimer normal making PE very unlikely. Chest x-ray added which is normal. On
reassessment, patient is asymptomatic and has not had any recurrent dizziness. No indication for hospitalization. Upon further questioning, the patient admits that she has had intermittent episodes of lightheadedness for the past several years.
She was advised to follow-up with her PCP and ED return precautions discussed. Patient discharged in stable condition.
ED Attending Note
-
Portions of this chart may have been created with voice recognition software.� Occasional wrong word or��sound alike� substitutions may have occurred due to the inherent limitations of voice recognition software.
Discharge Plan
Departure
Patient Disposition: Home (Routine Discharge)
Date of Disposition: 03/23/25
Time of Disposition: 13:21
Patient with high blood pressure during this ER visit?: No
Discharge Problem:
Near syncope
Instructions: Near Fainting (DC)
Prescriptions:
No Action
cyanocobalamin (vitamin B-12) 1,000 MCG tablet
1,000 mcg PO DAILY
cholecalciferol (vitamin D3) 1,000 UNITS tablet
1,000 units PO DAILY
ascorbic acid (vitamin C) [Vitamin C] 500 mg Tablet
500 mg PO DAILY
magnesium 200 mg Tablet
200 mg PO DAILY
diclofenac sodium 75 mg tablet,delayed release (DR/EC)
75 mg PO BID Qty: 10 0RF
Prilosec 10 mg susp,delayed release for recon
10 mg PO DAILY Qty: 30 0RF
Referrals:
Cesar De Luna MD [Family Provider, Family Practice]
Activity Restrictions/Additional Instructions:
Please call your family doctor today to schedule a follow-up appointment. Return to the ER with any new or worsening symptoms.
Interventions
Interventions:
*Risk Screen - Suicide Last Done: 03/23/25 09:51
*General Assessment Last Done: 03/23/25 09:51
*Neglect/Abuse Screening Last Done: 03/23/25 09:51
*ED- Fall Risk Assessment Last Done: 03/23/25 09:51
Discharge Date and Time
Print Language: SAMI
[2025-03-23] MEDS: NSS 500 IV (10:11)
[2025-03-23 10:38] LABS: ALT (SGPT) 24 U/L (0-35); AST (SGOT) 21 U/L (14-36); Albumin 4.5 g/dl (3.5-5.0); Alkaline Phosphatase 60 U/L (38-126); Blood Urea Nitrogen 25 mg/dl (7-17); Calcium 9.6 mg/dl (8.4-10.2); Carbon Dioxide 23 mmol/L (22-30); Chloride 109 mmol/L (98-107); Glucose 125 mg/dl (70-99); Hematocrit 37.5 % (37.0-47.0); Hemoglobin 12.6 g/dL (12.0-16.0); Lipase 93 U/L (23-300); Magnesium 1.9 mg/dl (1.6-2.3); Mean Corp Hgb Conc. 33.6 g/dL (33.0-37.0); Mean Corpuscular Volume 95.4 fL (81.0-99.0); Platelet Count 313 10^3/uL (130-400); Potassium 4.2 mmol/L (3.5-5.1); Red Cell Dist. Width 13.2 % (11.5-14.5); Sodium 139 mmol/L (135-145); Total Protein 7.3 g/dl (6.3-8.2); eGFR > 60.00
[2025-03-23 10:52] LABS: Troponin I < 0.012 ng/ml
[2025-03-23 11:05] LABS: Nucleated Red Blood Cells % 0 %
[2025-03-23 11:21] LABS: D-Dimer < 0.27 ug/mlFEU (0.00-0.50)
[2025-03-24 14:14] LABS: Lyme Antibody Screen, EIA Negative (Negative)
== END 2025-03-23 13:30 | disposition home or self-care (01) ==
LOC: EMR 09:41
PROVIDERS: Physician Assistant; EMERGENCY PHYSICIAN Emergency Medicine; FAMILY PHYSICIAN Family Medicine
DX: R55 Syncope and collapse (principal); I34.1 Nonrheumatic mitral (valve) prolapse; E78.00 Pure hypercholesterolemia, unspecified; I38 Endocarditis, valve unspecified; E53.8 Deficiency of other specified B group vitamins; Z82.49 Family history of ischemic heart disease and other diseases of the circulatory system; Z90.49 Acquired absence of other specified parts of digestive tract; Z90.710 Acquired absence of both cervix and uterus
CPT/HCPCS: 99283; 96360; 71046; 80053; 82962; 83690; 83735; 84484; 85025; 85379; 86618; 93005

== ENCOUNTER → 2025-06-30 08:33 | Outpatient (REF) | payer MEDICARE, OTHER, SELFPAY ==
[2025-06-30 09:03] LABS: Urine Character Clear (Clear)
[2025-06-30 09:09] LABS: Hematocrit 39.7 % (37.0-47.0); Hemoglobin 13.1 g/dL (12.0-16.0); Mean Corp Hgb Conc. 33.0 g/dL (33.0-37.0); Mean Corpuscular Volume 98.0 fL (81.0-99.0); Nucleated Red Blood Cells % 0 %; Platelet Count 303 10^3/uL (130-400); Red Cell Dist. Width 14.0 % (11.5-14.5)
[2025-06-30 09:19] LABS: ALT (SGPT) 25 U/L (0-35); AST (SGOT) 21 U/L (14-36); Albumin 4.7 g/dl (3.5-5.0); Alkaline Phosphatase 63 U/L (38-126); Blood Urea Nitrogen 28 mg/dl (7-17); Calcium 9.6 mg/dl (8.4-10.2); Carbon Dioxide 27 mmol/L (22-30); Chloride 104 mmol/L (98-107); Glucose 89 mg/dl (70-99); Lipase 99 U/L (23-300); Potassium 4.2 mmol/L (3.5-5.1); Sodium 139 mmol/L (135-145); Total Protein 7.6 g/dl (6.3-8.2); eGFR > 60.00
[2025-06-30 09:38] LABS: Urine Urothelial Cell 21-25 /LPF (FEW)
[2025-06-30 09:40] LABS: Urine Red Blood Cell 0-2 /HPF (0-2)
== END ==
LOC: REG 08:33
PROVIDERS: ATTENDING PHYSICIAN Physician Assistant Medical; FAMILY PHYSICIAN Family Medicine
DX: R10.30 Lower abdominal pain, unspecified (principal); R19.7 Diarrhea, unspecified; E53.8 Deficiency of other specified B group vitamins
CPT/HCPCS: 36415; 74177; 80053; 81003; 81015; 83690; 85025; 87086; Q9967

== ENCOUNTER 2025-07-06 12:20 | Emergency (ER) | payer MEDICARE, OTHER, SELFPAY ==
[2025-07-06 12:22] VITALS: BP 123/82
--- NOTE | 2025-07-06 13:53 | ED.GENMED ---
History of Present Illness
General
Chief Complaint: Anal/Rectal Problem
Time Seen by Provider: 07/06/25 13:43
History of Present Illness
History of Present Illness:
FOCUSED PAST MEDICAL HISTORY
- Expressive aphasia, has had bowel obstruction, diverticular disease, colon cancer
REVIEW OF OLD RECORDS
- The patient was admitted with an SBO November 2023
Note:
CHIEF COMPLAINT(S)
Presence of a lump that appeared similar to a thrombosed external hemorrhoid.
HISTORY OF PRESENT ILLNESS
The patient is a 74-year-old female who presented with a complaint of a lump that she noticed last night at around 1:00 AM. She described the lump as about the size of a small grape and initially hard to the touch. Upon inspecting it today, the
patient observed that the lump seemed to be turning black, prompting her visit to the emergency department due to concern. She has a history of previous hemorrhoids. During the examination, the lump appeared consistent with a thrombosed external
hemorrhoid. The patient is worried about not addressing the condition promptly within 72 hours, fearing it could worsen, but reassurance was provided that it does not appear gangrenous. The patient also reported having abdominal sensitivity and
recent explosive gas, which she theorized could be related to constipation and potentially contributing to increased pressure in the area.
PAST MEDICAL AND SURGICAL HISTORY
The patient has a history of colon cancer and underwent a pancreaticoduodenectomy (Whipple procedure) due to pseudomyxoma peritonei, involving some colon resections.
EXTERNAL RECORDS REVIEWED
The patient mentioned having a recent CT scan through [place] due to abdominal pain, revealing constipation, but was advised not to proceed with any specific treatment.
CHRONIC MEDICAL CONDITIONS SIGNIFICANTLY AFFECTING CARE
History of colon cancer and pseudomyxoma peritonei.
SOCIAL DETERMINANTS AFFECTING HEALTH
The patient is scheduled for a follow-up appointment with her colorectal surgeon, Dr. Oliver Correia, indicating established access to healthcare.
PHYSICAL EXAM
General: Alert, no acute distress.
Skin: Warm, dry.
Head: Normocephalic, atraumatic.
Neck: Supple, trachea midline.
Eye, Ears, Nose, Mouth, and Throat: Oral mucosa moist.
Cardiovascular: Normal peripheral perfusion, No edema.
Respiratory: Respirations are non-labored.
Gastrointestinal: Abdomen nondistended.
Anal: There is a small subcentimeter thrombosed external hemorrhoid which is only mildly tender, no evidence of abscess
Back: Normal range of motion, Normal alignment.
Musculoskeletal: Normal range of motion, normal strength.
Neurological: Alert and oriented to person, place, time, and situation, No focal neurological deficit observed.
Psychiatric: Cooperative, appropriate mood & affect.
PLAN
1. Sending a secure picture to the patients colorectal surgeon for review.
2. Follow-up appointment scheduled with Dr. Oliver Correia for further evaluation on Friday.
DIFFERENTIAL DIAGNOSIS
The Differential Diagnosis includes, in no particular order and is not limited to:
1. Thrombosed external hemorrhoid
2. Abscess
3. Gangrene
4. Inguinal hernia
5. Anal fissure
6. Colonic diverticulitis
7. Colon cancer recurrence
8. Hematoma
9. Perianal cellulitis
10. Infectious proctitis
Disposition:
SUMMARY OF ENCOUNTER
The patient, a 74-year-old female, presented with a concern over a lump she noticed last night, reminiscent of a thrombosed external hemorrhoid. She observed that the lump appeared to be turning black. The patient has a history of prior hemorrhoids
and underwent a CT scan for abdominal pain, which revealed constipation. In the emergency department, the lump was assessed and found to be consistent with a thrombosed external hemorrhoid. After consulting with Dr. Pedraza, Dr. Correia�s partner, it
was determined that there was no present need for surgical intervention due to the mildness of symptoms. The patient was reassured that the condition is likely to improve with time.
PLAN
- The patient is advised to follow up with Dr. Oliver Correia for further evaluation.
- Oerq-lee-[id number] creams, such as Recticare, were recommended for symptomatic relief.
- The use of Sitz baths or warm soaks was suggested to aid comfort.
MANAGEMENT OF THE PATIENTS CARE WAS DISCUSSED WITH
- Discussion with Dr. Pedraza, Dr. Hicks partner, regarding the patient�s condition and management options.
PATIENT EDUCATION AND COUNSELING
- The patient was informed that the thrombosed external hemorrhoid is likely to improve over time and that surgical intervention is not recommended currently due to the mildness of symptoms. [id number] treatment options were discussed for
symptom relief.
FOLLOW-UP INSTRUCTIONS
- The patient is scheduled to follow up with Dr. Oliver Correia for further evaluation.
MEDICAL DECISION MAKING
-Complexity of Data Reviewed: Chronic conditions affecting care include a history of colon cancer and pseudomyxoma peritonei. Differential diagnosis list includes thrombosed external hemorrhoid, abscess, gangrene, inguinal hernia, anal fissure,
colonic diverticulitis, colon cancer recurrence, hematoma, perianal cellulitis, and infectious proctitis.
-Data:
Category 1
External records reviewed: The patient mentioned having a recent CT scan through [place] indicating constipation.
Category 2
Clinical information obtained from independent historian: Consultation with Dr. Pedraza (Dr. Peraza partner) confirms the presence of a thrombosed external hemorrhoid.
Category 3
Discussion of management with other physician: Dr. Pedraza, Dr. Hicks partner, confirmed the lumps nature and suggested [id number] cream for relief.
-Risk:
Consideration of Admission/Observation: Escalation of care including admission/observation was considered given the complexity and risk of the patients presenting complaint, exam findings, and/or their underlying comorbidities. However, ultimately I
feel the patient is safe for outpatient management with close follow-up. Reasoning: Work-up reassuring, does not reveal any acute life/organ threatening processes, patients symptoms well controlled upon reevaluation, reexamination is reassuring,
vitals are stable, patient agreeable with discharge, reliable for follow-up.
Care significantly affected by Social Determinants of Health: Patient has scheduled access to follow-up with her colorectal surgeon, indicating established healthcare access.
DIAGNOSIS
- K64.8: Other hemorrhoids (Thrombosed external hemorrhoid).
Past History
Past History
ED Past Medical History: Cancer (Appendiceal with pseudomyxoma peritonei), Hypercholesterolemia, Valvular disease (MVP) and Other (Trigeminal neuralgia, B12 deficiency, diverticulitis, small bowel obstruction)
ED Past Surgical History: Appendectomy, Bowel resection, Cholecystectomy, Gynecological (Hysterectomy) and Other
Social History
Tobacco: Non-smoker
Alcohol: None
Drug: None
Personal:
Living: with family
Employment: Retired
Family History
Family History: Other (Grandparent with coronary disease, sister with coronary disease)
Phy Exam
Physical Exam
Physical Exam:
See HPI
Course
Vital Signs
Initial and Last Documented VS:
Initial Vital Signs
Temp Pulse Resp BP Pulse Ox
36.7 C 92 20 123/82 99
07/06/25 12:22 07/06/25 12:22 07/06/25 12:22 07/06/25 12:22 07/06/25 12:22
Last Documented Vital Signs
Temp Pulse Resp BP Pulse Ox
36.7 C 92 20 123/82 99
07/06/25 12:22 07/06/25 12:22 07/06/25 12:22 07/06/25 12:22 07/06/25 13:55
*Pulse Oximetry
SaO2: 99
Oxygen Mode of Delivery: Room air
Patient hypoxic: no
*Critical Care Note
Total Time (30-74mins, 75-104mins- exclusive of procedures): Not Applicable
ED Attending Note
-
Portions of this chart may have been created with voice recognition software.� Occasional wrong word or��sound alike� substitutions may have occurred due to the inherent limitations of voice recognition software.
Discharge Plan
Departure
Patient Disposition: Home (Routine Discharge)
Date of Disposition: 07/06/25
Time of Disposition: 14:37
Patient with high blood pressure during this ER visit?: Yes
Discharge Problem:
External thrombosed hemorrhoids
Instructions: Hemorrhoids (DC), How to Do a Sitz Bath
Prescriptions:
No Action
cyanocobalamin (vitamin B-12) 1,000 MCG tablet
1,000 mcg PO DAILY
cholecalciferol (vitamin D3) 1,000 UNITS tablet
1,000 units PO DAILY
ascorbic acid (vitamin C) [Vitamin C] 500 mg Tablet
500 mg PO DAILY
magnesium 200 mg Tablet
200 mg PO DAILY
diclofenac sodium 75 mg tablet,delayed release (DR/EC)
75 mg PO BID Qty: 10 0RF
Prilosec 10 mg susp,delayed release for recon
10 mg PO DAILY Qty: 30 0RF
Referrals:
Cesar De Luna MD [Family Provider, Family Practice]
Oliver Correia MD [Active, ColoRectal]
Activity Restrictions/Additional Instructions:
I discussed things with Dr. Correia's partner, Dr. Pedraza. He says you could try [id number] RectiCare to help with the pain cream, recommends warm soaks, as well as Tylenol and/or Advil. He is not concerned about the dark appearance and is
likely just related to the clot itself. Follow-up with Dr. Correia on Friday.
Interventions
Interventions:
*General Assessment Last Done: 07/06/25 12:22
Discharge Date and Time
Print Language: MACEDONIAN
[2025-07-06 15:05] VITALS: BP 118/87
== END 2025-07-06 15:11 | disposition home or self-care (01) ==
LOC: EMR 12:20
PROVIDERS: EMERGENCY PHYSICIAN Emergency Medicine; FAMILY PHYSICIAN Family Medicine
DX: K64.5 Perianal venous thrombosis (principal); R03.0 Elevated blood-pressure reading, without diagnosis of hypertension; E78.00 Pure hypercholesterolemia, unspecified; I34.1 Nonrheumatic mitral (valve) prolapse; K86.81 Exocrine pancreatic insufficiency; G50.0 Trigeminal neuralgia; Z85.038 Personal history of other malignant neoplasm of large intestine; Z90.411 Acquired partial absence of pancreas; Z90.49 Acquired absence of other specified parts of digestive tract; Z82.49 Family history of ischemic heart disease and other diseases of the circulatory system
CPT/HCPCS: 99282